=== PATIENT | female | born 1965 | race Two or more races ===

== ENCOUNTER 2021-11-12 15:50 | Outpatient (REF) | payer OTHER, SELFPAY ==
--- NOTE | ~2021-11-12 | MM_ITS ---
EXAMINATION: MM SCREENING DIGITAL BREAST TOMOSYNTHESIS, BILATERAL CLINICAL INFORMATION: Screening. Asymptomatic. The lifetime risk of breast cancer based on the Tyrer-Cuzick Model is 9%. COMPARISON: Mammography: 05/04/2017, 07/27/2015, 07/24/2013, 07/17/2013. TECHNIQUE: Digital breast tomosynthesis is performed in both the craniocaudal and mediolateral oblique views along with computer-aided detection (CAD). Synthesized 2D images are generated from the tomosynthesis. FINDINGS: The breasts are heterogeneously dense, which may obscure small masses (ACR BI-RADS breast composition Category c). Parenchymal pattern is similar to prior exams and there is no interval mass or architectural abnormality. The axilla and skin contours are unremarkable. Left breast has new regional heterogeneous calcifications upper outer quadrant. Patient will be recalled for additional magnification views. Right breast has new tightly grouped relatively coarse calcifications posterior 11:30 o'clock position. Additional magnification views will also be requested. MM/MM tomosynthesis screening BI IMPRESSION: Left: -New regional heterogenous calcifications upper outer quadrant. Right: -New tightly grouped relatively coarse calcifications posterior 11:30. ASSESSMENT: BI-RADS 0: Incomplete - Need Additional Imaging Evaluation RECOMMENDATION: 1. Additional views of the bilateral breasts (bilateral magnification CC and bilateral magnification ML). 2. Radiology department staff will contact the patient for additional imaging. This patient's information was entered into a reminder system with a target due date for their next mammogram.
== END 2021-11-12 15:51 | disposition home or self-care (01) ==
LOC: HO.MAMMO 15:50
PROVIDERS: PCP Nurse Practitioner; Visit Provider Nurse Practitioner
DX: Z12.31 Encounter for screening mammogram for malignant neoplasm of breast (principal)
CPT/HCPCS: 77063; 77067

== ENCOUNTER 2021-11-25 14:39 | Outpatient (REF) | payer OTHER, SELFPAY ==
--- NOTE | ~2021-11-25 | US_ITS ---
EXAMINATION: MM DIAGNOSTIC DIGITAL BREAST TOMOSYNTHESIS, BILATERAL US DIAGNOSTIC ULTRASOUND BREAST, LEFT CLINICAL INFORMATION: Recall from screening for new regional heterogeneous calcifications upper outer left breast and new tightly grouped relatively coarse calcifications posterior 11:30 right breast. COMPARISON: Mammography: 11/12/2021, 05/04/2017, 07/27/2015 TECHNIQUE: Digital breast tomosynthesis is performed. 2D images are generated from the tomosynthesis. The following views are obtained: Bilateral magnification CC, bilateral magnification ML. Images reviewed intra departmentally. Ultrasound left breast is targeted to the upper outer quadrant and left axilla. Grayscale imaging is performed without and with harmonics. FINDINGS: The breasts are heterogeneously dense, which may obscure small masses (ACR BI-RADS breast composition Category c). Additional magnification views left breast demonstrate regional pleomorphic abnormal calcifications with some branching charly types upper outer quadrant extending for approximately 5 cm in length posterior to anterior. This represents change from prior studies. Additional magnification views right breast demonstrate tightly grouped heterogeneous coarse calcifications posterior 11:30 o'clock position. This represents change from prior studies. Ultrasound left breast demonstrates irregular area of marked echogenicity with strong posterior shadowing corresponding to the area of calcification on mammography. There are scattered specular foci near side corresponding to the calcifications. Additional imaging of the left axilla demonstrates several benign lymph nodes with normal hany architecture. Results are discussed with the patient at time of visit. Ultrasound-guided core biopsy left breast is recommended. The right breast calcifications are low suspicion. Suggest stereotactic sampling on the right. US/US breast LT limited IMPRESSION: Left: -Regional abnormal pleomorphic calcifications upper outer left breast 5 cm length posterior to anterior with associated ultrasound correlate, high suspicion for malignancy. -No visible adenopathy left axilla. Right: -Tight heterogeneous coarse calcifications posterior 11:30, low suspicion for malignancy. ASSESSMENT: BI-RADS 4: Suspicious (subcategory 4C: High suspicion for malignancy) RECOMMENDATION: -Ultrasound-guided core biopsy left breast upper outer quadrant. -Stereotactic biopsy calcifications posterior 11:30 o'clock This patient's information was entered into a reminder system with a target due date for their next mammogram.
== END 2021-11-25 14:40 | disposition home or self-care (01) ==
LOC: HO.MAMMO 14:39
PROVIDERS: PCP Nurse Practitioner; Visit Provider Nurse Practitioner
DX: R92.1 Mammographic calcification found on diagnostic imaging of breast (principal)
CPT/HCPCS: 76642; 77066

== ENCOUNTER 2021-12-01 12:47 | Outpatient (REF) | payer MEDICAID, SELFPAY ==
--- NOTE | ~2021-12-01 | MM_ITS ---
PROCEDURE: US GUIDED BREAST BIOPSY, LEFT CLINICAL INFORMATION: Mass containing calcifications 1:00 position left breast COMPARISON: November 25, 2021 and studies dating back to June 01, 2012 PROCEDURAL DETAILS: The details of the procedure, as well as the risks, benefits, and alternatives to the procedure were explained to the patient in detail and all of her questions were answered, after which written informed consent was obtained. Site and side were confirmed. Prior to the procedure, sonography revealed the irregular shadowing mass containing calcifications. A time-out was performed, the lesion intended for biopsy was targeted, and the skin of the left breast was then prepped and draped in the usual sterile fashion. Using sonographic guidance, sterile technique, and 1% lidocaine without epinephrine for local anesthesia, multiple automated core biopsies were obtained through the targeted area with a 14G spring loaded Achieve core biopsy device. There was real-time confirmation of appropriate needle passage. Sampling was documented. At the completion of tissue sampling, a single coil metallic clip was deposited at the biopsy site. There was no evidence of immediate complication. SPECIMEN: An appropriate sample was obtained. DIGITAL POST-PROCEDURE MAMMOGRAPHY: Breast density: The tissue is heterogeneously dense which may obscure small masses. BI-RADS version 5, category C. There are no new mammographic findings demonstrated. The postprocedure 2-view direct digital mammogram reveals satisfactory positioning of the biopsy clip. The patient tolerated the procedure well and, after assuring adequate hemostasis, was discharged in good condition after reviewing postbiopsy breast care instructions. Final pathology results are pending. MM/MM diagnostic mammo unilat LT IMPRESSION: 1. No immediate complication from ultrasound-guided percutaneous biopsy left breast. 2. Ultrasound was used to localize and guide marker clip placement. 3. The 2-view direct digital postprocedure mammogram reveals satisfactory positioning of the biopsy clip. 4. Final pathology results are pending. A separate report with final recommendations will be issued once these results are made available.
--- NOTE | ~2021-12-01 | MM_ITS ---
EXAMINATION: STEREOTACTIC TOMOSYNTHESIS-GUIDED VACUUM-ASSISTED BREAST BIOPSY, RIGHT SPECIMEN RADIOGRAPH, RIGHT POST PROCEDURE DIGITAL MAMMOGRAM, RIGHT CLINICAL INFORMATION: Indeterminate grouping of calcifications superior right breast. COMPARISON: November 25, 2021 and studies dating back to June 01, 2012. TECHNIQUE/PROCEDURE: Informed consent was obtained from the patient after discussion of the benefits, risks, and alternatives to biopsy today. Patient appeared to understand. Gave opportunity for questions. Patient signed consent form. BIOPSY TABLE: [employer] Affirm Prone Biopsy System. LESION: Grouping of indeterminate calcifications. LOCAL ANESTHESIA: 8 mL 1% lidocaine; 18 mL 1% lidocaine with epinephrine. DERMATOTOMY: Single skin jazmyne dermatotomy performed. NEEDLE: Bubblesiva 9-gauge vacuum assisted core biopsy device. APPROACH: craniocaudal. TARGETING: Digital breast tomosynthesis used for targeting. CORES: 13. CLIP: Top hat. SPECIMEN RADIOGRAPH: Specimen radiograph is taken in separate room using digital mammography. The index calcifications are in the excised cores. Post biopsy image performed on the biopsy table demonstrates at the marking clip to lie within the biopsy cavity with no residual calcifications identified. The patient tolerated the procedure well. No immediate complications. Home instructions reviewed with the patient. Final pathology results are pending. MM/MM stereotactic biopsy RT IMPRESSION: 1. Digital tomosynthesis-guided core biopsy right breast with clip placement. 2. Specimen radiograph taken and post procedure image on biopsy table. There is satisfactory positioning of the biopsy clip. 3. Final pathology results pending. An addendum report will be issued.
[2021-12-01] MEDS: Lidocaine HCl 1 % 20 ML VIAL 7 ML SUBCUT (14:47)
[2021-12-01] MEDS: Sodium Bicarbonate 8.4% 50 MEQ/50 ML VIAL SUBCUT (14:49)
== END 2021-12-01 12:48 | disposition home or self-care (01) ==
LOC: HO.MAMMO 12:47
PROVIDERS: PCP Nurse Practitioner; Visit Provider Surgery
DX: C50.412 Malignant neoplasm of upper-outer quadrant of left female breast (principal); R92.1 Mammographic calcification found on diagnostic imaging of breast
CPT/HCPCS: 19081; 19083; 77062; 77065; 88305; 88360; 99202; A4648

== ENCOUNTER → 2021-12-08 15:03 | Outpatient (BNVA) | payer MEDICAID, SELFPAY | PROVIDERS: PCP Internal Medicine; Visit Provider Surgery | DX: C50.919 Malignant neoplasm of unspecified site of unspecified female breast (principal) | CPT/HCPCS: 99212 ==

== ENCOUNTER → 2021-12-15 14:37 | Outpatient (BNV) | payer MEDICAID, SELFPAY | PROVIDERS: PCP Internal Medicine; Referring Provider Surgery; Visit Provider Internal Medicine | DX: C50.412 Malignant neoplasm of upper-outer quadrant of left female breast (principal) | CPT/HCPCS: 99205; 99213; 99214 ==

== ENCOUNTER → 2021-12-20 10:15 | Outpatient (REF) | payer MEDICAID, SELFPAY ==
--- NOTE | 2021-12-20 10:17 | CA_ITS ---
Transthoracic Echocardiogram Patient (Last, First, Middle): Keesha Joaquin, Gender: Female Date of : 1965 Age: 56 Procedure Date: 12/20/2021 Procedure Type: Transthoracic Echocardiogram Location: OP Height: 160.02 cm Weight: 76.2 kg BSA: 1.80 m2 Heart Rate: bpm BP: 150 / 70 mmHg Audio Visual Project Manager: СЕРГЕЙ Araujo MD: Nova Olson MD Silk Spotter: Holden Bowden MD Symptoms: pre-chemo eval Study Quality: Fair ECG Rhythm: Sinus Conclusions: - Normal study Findings Left Ventricle Normal left ventricular size, thickness, and systolic function. The visually estimated ejection fraction is between 55-60%. Spectral Doppler is indicative of a normal filling pattern.Peak GLS is - 17.3%, within normal limits Right Ventricle Normal right ventricular cavity size and systolic function. Atria Both atria are normal in size. There is no evidence of interatrial shunt. Aortic Valve The aortic valve structure and function is likely normal. There is no aortic valve stenosis. There is no aortic valve regurgitation. Mitral Valve Normal mitral valve structure and function. There is trace mitral valve regurgitation. There is no mitral valve stenosis. Pulmonic Valve The pulmonic valve is likely normal. Tricuspid Valve Normal tricuspid valve structure. There is trace tricuspid valve regurgitation. The right ventricular systolic pressure is normal. The right ventricular systolic pressure is 24 mmHg. Normal right atrial pressure. There is no evidence of pulmonary hypertension. Great Vessels All visible segments of the aorta are normal in size. The pulmonary artery was not well visualized. Venous The inferior vena cava is normal in size and collapses greater than 50% with inspiration. Pericardium/Pleural There is no evidence of pericardial effusion. Prior Study Comparison No prior study available for comparison. Measurements 2D Linear Measurements IVSd: 0.91 0.6-0.9/0.6-1.0 cm LVIDd: 4.53 3.9-5.3/4.2-5.9 cm LVIDd Index: 2.52 2.4-3.2/2.2-3.1 cm/m2 LVIDs: 2.77 2.0-3.6 cm LVPWd: 0.87 0.7-1.1 cm LA Diam: 3.70 2.7-3.8/3.0-4.0 cm LAIDs Index: 2.06 1.5-2.3 cm/m2 LV Mass: 164.86 67-162/88-224 g LV Mass Index: 91.59 43-95/49-115 g/m2 LVOT Diam: 2.00 3.0+(-)1.3 cm 2D Systolic Function EF 4C: 57.00 >55% EF 2C: 58.50 >55% EF BiP: 59.20 >55% Mitral Valve MV Pk E: 0.97 MV PK A: 0.66 MV Decel Time: 224.00 E/A: 1.50 E'Lateral: 8.81 E'Medial: 9.46 E/E' Med: 10.30 E/E' Lat: 11.00 PHT: 66.00 MVA PHT: 3.33 Decel [place]: 4.35 Aortic Valve AoV Pk Cody: 1.66 AoV Mn Cody: 1.16 AoV VTI: 0.35 AoV Pk Grad: 11.00 Aov Mn Grad: 6.00 CHRISTOPHER Cont.VTI: 2.11 LVOT LVOT Pk Cody: 1.14 LVOT Mn Cody: 0.75 LVOT VTI: 0.24 LVOT Pk Grad: 5.00 LVOT Mn Grad: 3.00 LVOT Diam: 2.00 LVOT Area: 3.14 Diastolic Function MV Pk E: 0.97 MV Pk A: 0.66 E/A: 1.50 E'Medial: 9.46 E/E' Med: 10.30 E' Laterial: 8.81 E/E' Lat: 11.00 Right Ventricle TAPSE (mm): 23.20 TVS' Cody: 12.20 Tricuspid Valve TR Pk Cody: 2.29 TR Pk Grad: 21.00 RA Press: 3.00 RVSP: 24.00 Great Vessels Aorta Sinus of Valsalva: 3.05 2.0-3.5 cm Ao Asc: 3.20 2.1-3.4 cm Ao Arch: 3.10 Updated in Other Vendor System with Status of Final Holden Bowden MD electronically signed on 12/20/2021 5:44:11 PM with status of Final
== END ==
LOC: HO.CARD 10:15
PROVIDERS: Visit Provider Internal Medicine
DX: C50.919 Malignant neoplasm of unspecified site of unspecified female breast (principal)
CPT/HCPCS: 93306; 93356

== ENCOUNTER 2021-12-23 17:46 | Outpatient (REF) | payer MEDICAID, SELFPAY ==
--- NOTE | ~2021-12-23 | MR_ITS ---
EXAMINATION: MR BREAST WITHOUT AND WITH CONTRAST, BILATERAL CLINICAL INFORMATION: Newly diagnosed left breast invasive ductal carcinoma with DCIS at 1:00. Recent benign right breast biopsy at 11:30. COMPARISON: Mammogram 11/25/2021. No previous breast MRI. TECHNIQUE: Imaging was performed with a dedicated breast coil. Prior to the administration of contrast, bilateral axial T1 and bilateral axial T2 weighted sequences were obtained. After the uneventful administration of?7.5 mL of Gadavist, dynamic contrast-enhanced VIBRANT series through the breasts in the axial plane were performed. Subtracted images were performed and reviewed. A delayed sagittal sequence through both breasts was acquired. Additionally, CAD post-processing, including maximum intensity projections, 3-D reconstructions and kinetic analysis, were performed an independent workstation and reviewed by the interpreting radiologist is a portion of this exam. FINDINGS: The patient's fibroglandular tissue demonstrates moderate background enhancement. LEFT BREAST: There is large area of irregular masslike enhancement in the left breast located between the 2:00 and 4:00 axes measuring 5.2 x 2.8 x 2.5 cm, 6 cm from the nipple. The closest skin margin is lateral at a distance of 1.3 cm. The distance to the pectoral fascia is 1.5 cm. The kinetics are heterogeneous including type I and type II enhancement. This area represents the site of the recently diagnosed malignancy. The area of enhancement correlates well to the coarse heterogeneous calcifications in increased density evident mammographically. There is no other suspicious nonmass or mass enhancement within the left breast. Review of the kinetic images demonstrates no additional suspicious findings. RIGHT BREAST: In the right breast, at approximately the 11:30 position, 7 cm from the nipple, there is a T2 hyperintense collection with associated enhancement measuring 1.1 cm size which correlates to the recent biopsy site. The enhancement is consistent with post procedure change. No suspicious nonmass or mass enhancement within the right breast. Review of the kinetic images demonstrates no additional suspicious findings. Within the right axilla there is a T1 hypointense T2 hyperintense mass measuring 1.6 x 1.5 cm (image 9, series 4). This may represent an abnormal axillary lymph node. Recommend ultrasound evaluation. No abnormal left axillary lymph nodes. Limited views of the chest and abdomen are unremarkable. MR/MR breast BI wo/w con IMPRESSION: 1. Large area of mass enhancement in the upper outer quadrant of the left breast with extension inferiorly to the 4:00 axis correlating to the site of recent the diagnosed malignancy. 2. No MRI specific evidence for abnormal left axillary adenopathy. 3. Abnormal right axillary mass. Recommend MR directed second look ultrasound. 4. Unremarkable post biopsy changes, upper outer quadrant, right breast. No MRI evidence of right breast malignancy. ASSESSMENT: LEFT BREAST: B-RADS 6 - Known Malignancy - Appropriate action should be taken. RIGHT BREAST: BI-RADS 4 - Suspicious abnormality - Biopsy should be considered. RECOMMENDATIONS: Recommend MR directed second look ultrasound. Recommendation will be called to the referring office.
== END 2021-12-23 17:47 | disposition home or self-care (01) ==
LOC: HO.MRI 17:46
PROVIDERS: Visit Provider Internal Medicine Medical Oncology
DX: C50.919 Malignant neoplasm of unspecified site of unspecified female breast (principal)
CPT/HCPCS: 77049; A9585

== ENCOUNTER 2021-12-28 06:38 | Day surgery (SDC) | payer MEDICAID, SELFPAY ==
--- NOTE | ~2021-12-28 | IR_ITS ---
PROCEDURE: IR INSERTION OF TUNNEL CATHETER CLINICAL INFORMATION: Breast cancer. COMPARISON: None. TECHNIQUE: Procedure and risks and benefits including bleeding, infection and pneumothorax were discussed with the patient and informed consent was obtained. All elements of maximal sterile barrier technique followed including use of cap, mask, sterile gown, sterile gloves, a sterile full body drape and hand hygiene. Also followed skin preparation with 2% chlorhexidine for cutaneous antisepsis, and sterile ultrasound preparation with sterile gel and probe cover when applicable. The right neck and upper chest were prepped and draped in usual sterile fashion. The skin and soft tissues of the right lower neck were anesthetized with 1% lidocaine plain. Using ultrasound guidance and a 5 [place] micropuncture system, right internal jugular vein access was obtained. Over a 0.018 wire, a 5 [place] dilator was positioned in the SVC. The skin and soft tissues of the right upper anterior chest were anesthetized with 1% lidocaine with epinephrine. A small incision was made. Using blunt dissection, a subcutaneous pocket was created. A subcutaneous tunnel from the chest to the neck incision was anesthetized with 1% lidocaine with epinephrine. Using a tunneler, a 6.6 [place] single-lumen catheter was tunneled from the chest to the neck incision. Catheter was attached to the port. The port was positioned in the subcutaneous pocket using two 2-0 nonabsorbable sutures. A 0.025 guidewire was advanced through the 5 [place] dilator into the right atrium. Following serial dilatation, the 5 [place] dilator was exchanged for a peel-away sheath. Using bent wire technique, catheter length was estimated and the catheter was cut. Catheter length is 20.5 cm. Catheter was fed through the peel-away sheath. The neck incision was closed using a 4-0 absorbable subcuticular suture. Chest incision was closed using three 3-0 absorbable subcuticular sutures followed by a running 4-0 absorbable subcuticular suture. The port was accessed. The port had good blood return, flushed easily and was instilled with 5 mL heparin 100 unit per mL solution. Real-time ultrasound guidance was used to document vein patency and for needle entry. A formal ultrasound picture was recorded. The patient received Versed 1.5 mg and fentanyl 75 mcg intravenously during the procedure. Total sedation time was 115 minutes. Fluoroscopy time was 0.7 minutes. DAP 83 cGy-cm2. Conscious sedation was provided by a registered nurse under my direct supervision. One saved fluoroscopic image and one saved ultrasound image. FINDINGS: There is a right internal jugular port with tip projecting over the cavoatrial junction. IR/IR cvc insert tunnel w prt/field ring assembler IMPRESSION: Right internal jugular 6.6 [place] single-lumen Dignity Port-A-Cath placement.
[2021-12-28 07:14] VITALS: BMI 29.7
[2021-12-28 07:26] LABS: MANUAL DIFF FLAG NO
[2021-12-28 07:28] LABS: Basophils Absolute Auto 0.1 X10*3/uL (0.0-0.2); Basophils Percent Auto 0.5 % (0-2); Eosinophils Absolute Auto 0.2 X10*3/uL (0.0-0.4); Eosinophils Percent Auto 2.2 % (0-4); Hematocrit 33.8 % (37.0-47.0); Hemoglobin 11.3 g/dl (12.0-16.0); Imm Gran Abs Auto 0.02 X10*3/uL (0.00-0.03); Imm Gran Pct Auto 0.2 % (0.0-0.4); Lymphocytes Absolute Auto 3.4 X10*3/uL (1.2-4.9); Lymphocytes Percent Auto 34.6 % (20-40); Mean Corpuscular HGB Conc 33.4 g/dl (31.0-35.0); Mean Corpuscular Volume 89.7 fL (80.0-98.0); Mean Platelet Volume 9.8 fL (9.4-12.3); Monocytes Absolute Auto 0.7 X10*3/uL (0.1-1.2); Monocytes Percent Auto 7.3 % (2-11); Neutrophils Absolute Auto 5.4 x10*3/uL (2.0-8.3); Neutrophils Percent Auto 55.2 % (45-73); Platelet Count 242 X10*3/uL (160-400); Red Blood Count 3.77 X10*6/uL (4.20-5.50); Red Cell Distribution Width 13.2 % (11.0-16.0); White Blood Count 9.8 X10*3/uL (4.8-10.8)
[2021-12-28 07:30] LABS: Glucose, Whole Blood 137 mg/dL (60-115)
[2021-12-28 07:33] LABS: Prothrombin Time 11.2 SEC (9.9-13.0)
[2021-12-28 07:36] LABS: Partial Thromboplastin Time 32.9 SEC (24.1-38.0)
[2021-12-28] MEDS: Lidocaine HCl 1 % 20 ML VIAL 5 ML INFILTRATI (10:06)
[2021-12-28] MEDS: Lidocaine HCl 2% PF/Epi 1:200 20 ML VIAL INFILTRATI (10:08)
[2021-12-28 10:36] VITALS: BP 153/83; PULSE 72; RESP 18; TEMP 36.1; O2SAT 97
--- NOTE | 2021-12-28 10:47 | HO.RADPN ---
RADIOLOGY Narrative Narrative: RIJ 6.6 fr Dignity singlelumen port placed. Tip at cavoatrial junction.
[2021-12-28] MEDS: Acetaminophen 325 MG TABLET 650 MG PO (10:48)
[2021-12-28 10:51] VITALS: BP 141/75; PULSE 72; RESP 18; O2SAT 98
[2021-12-28 11:06] VITALS: BP 158/85; PULSE 75; RESP 18; O2SAT 97
[2021-12-28 11:21] VITALS: BP 133/75; PULSE 77; RESP 18; O2SAT 98
[2021-12-28 11:36] VITALS: BP 145/80; PULSE 74; RESP 18; TEMP 36.1; O2SAT 99
== END 2021-12-28 11:40 | disposition home or self-care (01) ==
PROVIDERS: Radiology Diagnostic Radiology; PCP Nurse Practitioner; Visit Provider Radiology Diagnostic Radiology
DX: C50.912 Malignant neoplasm of unspecified site of left female breast (principal); Z17.1 Estrogen receptor negative status [ER-]
CPT/HCPCS: 36415; 36561; 82947; 85025; 85610; 85730; 99152; 99153; C1769; C1788; J0690; J1642; J2250; J3010

== ENCOUNTER 2021-12-30 08:35 | Outpatient (REF) | payer MEDICAID, SELFPAY ==
--- NOTE | ~2021-12-30 | MM_ITS ---
EXAMINATION: US DIAGNOSTIC ULTRASOUND BREAST, RIGHT US ULTRASOUND-GUIDED BIOPSY BREAST/AXILLA, RIGHT MM POST PROCEDURE DIGITAL MAMMOGRAPHY, RIGHT CLINICAL INFORMATION: Newly diagnosed left breast invasive ductal cancer with DCIS 12/01/2021. Benign right stereotactic biopsy 12/01/2021 (stromal fibrosis and coarse calcifications). Postbiopsy breast MRI 12/23/2021 demonstrates prominent right axillary node for diagnostic ultrasound and tissue sampling. COMPARISON: Mammography 11/12/2021, 11/25/2021, left ultrasound-guided biopsy and right stereotactic biopsy 12/01/2021, MR bilateral breasts 12/23/2021. US BREAST, RIGHT TECHNIQUE: Ultrasound of the right axilla is performed with real-time garcia scale imaging and color Doppler. The recent MRI examination to guide targeted ultrasound. FINDINGS: There is a axillary node in expected location based on the MR right axilla measuring just under 2 cm in diameter with thickened cortex up to 5 mm. Mild lobular contours are present. There is central fatty hilus and normal color flow pattern. This corresponds to the finding on recent MRI. US BIOPSY BREAST/AXILLA, RIGHT FINDINGS: Proper informed consent is obtained from the patient after discussion of the procedure, potential risks and complications, and alternatives. Patient was given an opportunity for questions. The patient appeared to understand. The patient consented to the procedure and signed the consent form. Hospital provided staff interpreter assisted for the consent and throughout the procedure. LOCATION: Right axilla GUIDANCE: Ultrasound-guided; aseptic technique. LESION: Axillary nodes with thickened cortex and mild lobular surface contour. APPROACH: Lateral medial ANESTHESIA: 10 mL carbonated 1% lidocaine. DERMATOTOMY: Single skin jazmyne dermatotomy performed. NEEDLE: 16-gauge Bard Marquee biopsy device with co-axial introducer. CORES: 5 core (3 cores placed in formalin and 2 cores and flow cytometry). CLIP: HydroMARK; shape: butterfly. POST PROCEDURE DIGITAL BREAST TOMOSYNTHESIS, RIGHT: The post biopsy mammogram is performed in separate room using separate digital breast equipment from the biopsy procedure. MLO x3 views are obtained. The breasts are heterogeneously dense, which may obscure small masses (breast composition category: c). The biopsy clip marker is confirmed right axilla. There is a port in the [id number]. A biopsy clip marker is also present in the upper right breast from recent benign stereotactic biopsy. No gross hematoma. The patient tolerated the procedure well. No immediate complications. Home instructions reviewed with the patient. Final pathology results are pending. MM/MM diagnostic mammo unilat RT IMPRESSION: 1. Status post ultrasound-guided core biopsy node right axilla. 2. Clips place: HydroMARK; shape: butterfly. 3. Pathology pending. An addendum report will be issued.
== END 2021-12-30 08:36 | disposition home or self-care (01) ==
LOC: HO.MAMMO 08:35
PROVIDERS: Radiology Diagnostic Radiology; Visit Provider Internal Medicine
DX: C50.911 Malignant neoplasm of unspecified site of right female breast (principal)
CPT/HCPCS: 36415; 38505; 76642; 76942; 77062; 77065; 88184; 88185; 88305; 88341; 88342

== ENCOUNTER 2022-02-14 14:25 | Emergency (ER) | payer MEDICAID, SELFPAY ==
[2022-02-14 15:40] VITALS: BP 113/65; PULSE 74; RESP 18; TEMP 36.8; O2SAT 98; BMI 26.0
--- NOTE | 2022-02-14 18:12 | ED.GENADULT ---
HPI - General Adult General Chief complaint: Skin/Abscess/Foreign Body Stated complaint: abases on vagina Time Seen by Provider: 02/14/22 18:12 Source: patient Mode of arrival: ambulatory History of Present Illness HPI narrative: 56-year-old female with past medical history of diabetes, HLD, HTN, breast CA on chemotherapy, presenting to the ED complaining of painful lump to right labia since Monday. Reports area has been growing, believed opened/popped today as noted leaking. Denies abdominal pain, dysuria, hematuria, rectal pain, bleeding, fever Onset (ago): day(s) Related Data Home Medications Medication Instructions Recorded Confirmed atorvastatin 80 mg tablet 80 mg PO QPM 12/01/21 02/07/22 cholecalciferol (vitamin D3) 50 50 mcg PO DAILY 12/01/21 02/07/22 mcg (2,000 unit) tablet losartan 50 mg-hydrochlorothiazide 1 tab PO DAILY 12/01/21 02/07/22 12.5 mg tablet multivitamin-ferrous 1 tab PO DAILY 12/01/21 02/07/22 fumarate-folic acid 18 mg-400 mcg tablet (Certavite-Antioxidant) metformin 500 mg tablet 1,000 mg PO BID 12/08/21 02/07/22 Previous Rx's Medication Instructions Recorded dexamethasone 4 mg tablet 4 mg PO BID #30 tabs 01/04/22 ondansetron 8 mg disintegrating 8 mg PO Q8H PRN Nausea #30 tabs 01/04/22 tablet potassium chloride 10 mEq 10 meq PO DAILY #30 tabs 02/07/22 tablet,extended release (K-Tab) cephalexin 500 mg capsule 500 mg PO QID 7 days #28 caps 02/14/22 doxycycline hyclate 100 mg tablet 100 mg PO BID 7 days #14 tabs 02/14/22 Allergies Allergy/AdvReac Type Severity Reaction Status Date / Time No Known Allergies Allergy Verified 12/28/21 07:14 Review of Systems Review of Systems: Constitutional: No Weight loss, No Fever, No Chills ENT/Mouth: No Ear Pain, No Nasal Congestion, No sore throat, No Rhinorrhea, No Swallowing Difficulty Cardiovascular: No Chest Pain, No SOB Respiratory: No Cough, No Sputum, No Wheezing Gastrointestinal: No Nausea, No Vomiting, No Diarrhea, No Constipation, No Abdominal pain Genitourinary: No Dysuria, No Urinary Frequency, No Hematuria, No Urinary Incontinence/retention, No Urgency, No Flank Pain Musculoskeletal: No joint pain, No Myalgias, No Joint Swelling Skin: + Skin Lesions, No rash Neuro: No Weakness, No Numbness, No Paresthesias Yes all other systems are reviewed and are negative Constitutional: Constitutional: Reports as per [facility] Past Medical History Attestation statement: The following information was validated with the patient. Medical History (Updated 02/14/22 @ 18:19 by BONIFACIO Mina) Breast calcification, left Breast calcification, right COVID-19 vaccine series completed Diabetes Elevated cholesterol HTN (hypertension) Invasive ductal carcinoma of breast Surgical History H/O colonoscopy Family History Family History Father CVD (cardiovascular disease) Social History Social History (Updated 02/07/22 @ 10:50 by RAFIQ No) Household Members: None Housing: Apartment Are you a primary patient care assistant to a significant other at home: No Do you presently have visiting nurse or other home services: No Patient Tobacco Use Status: Never used Tobacco Substance Use Type: Marijuana Advance Directives: No Advance Directives Information Provided: No service: No Current occupational status: unemployed Physical Exam ED Vital Signs: Vital Signs - 24 hr 02/14/22 15:40 Temperature 98.2 F Pulse Rate 74 Respiratory Rate 18 Blood Pressure 113/65 Pulse Oximetry 98 Oxygen Delivery Method Room Air BMI result Body Mass Index 26.0 Const General: cooperative, healthy appearing and no acute distress Orientation/consciousness: patient oriented x3 Limitations: no limitations HENMT Head: Yes normal to inspection and Yes atraumatic Ears: hearing grossly normal bilaterally General nose exam: Normal external nose present Face and sinus: Yes normal facial exam Eyes General: appearance normal, both eyes and all related structures EOM: EOMs intact bilaterally Neck Neck: Yes normal visual inspection and Yes no meningeal signs Resp Effort & Inspection: normal respiratory effort and no respiratory distress Auscultation: clear to auscultation bilaterally Cardio Rate: regular rate Heart sounds: S1 normal heart sound present and S2 normal heart sound present GI Inspection: Yes normal to inspection Palpation (GI): Soft to palpation, nontender, no guarding and not rigid Other: + indurated abscess to right labia majora. No fluctuance. Scant serosanguineous leakage expressed. No surrounding/overlying erythema/streaking. No evidence of Roseanna gangrene Skin Rashes: no rashes Wounds: no wounds Neuro General: patient oriented x3, tone normal and no meningeal signs Gait exam (Neuro): Normal gait present Extrem General: Yes normal to inspection Medical Decision Making MDM Narrative Medical decision making narrative: 56-year-old female with past medical history of diabetes, HLD, HTN, breast CA on chemotherapy, presenting to the ED complaining of painful lump to right labia since Monday. On exam vital signs stable, NAD, nontoxic appearing, physical exam as above. No overlying cellulitis. Area indurated will not perform I&D at this time. Discussed worrisome signs and symptoms and strict return precautions with patient, will DC with antibiotics and close follow-up Medical Records Medical records reviewed: Yes I reviewed the patient's medical records. Lab Data Lab results reviewed: Yes I reviewed the patient's lab results. Discharge Plan Discharge Clinical Impression: Abscess of right genital labia Patient Disposition: Home, Self-Care Instructions: Abscess (ED), Abscess Follow-up (ED) Additional Instructions: you have an abscess of your labia take keflex and doxycycline as prescribed apply warm compresses avoid the sun while on Doxycycline as makes you prone to sunburn if area grows, becomes, red, has put drainage or you have fever return to the ED usted tiene un absceso de susan labios tome keflex y doxiciclina seg?n lo prescrito aplicar compresas calientes evite el marylou mientras yeni doxiciclina, ya que lo hace propenso a las quemaduras damian si el ?madhu crece, se pone mireya, mahoney puesto drenaje o tiene fiebre, regrese al servicio de urgencias Prescriptions: New cephalexin 500 mg capsule 500 mg PO QID 7 Days Qty: 28 0RF doxycycline hyclate 100 mg tablet 100 mg PO BID 7 Days Qty: 14 0RF No Action ondansetron 8 mg Tablet,Disintegrating 8 mg PO Q8H PRN (Reason: Nausea) Qty: 30 3RF dexamethasone 4 mg Tablet 4 mg PO BID Qty: 30 2RF Rx Instructions: start the night before chemotherapy and take twice a day for 2 days after chemotherapy potassium chloride [K-Tab] 10 mEq Tablet Extended Release 10 meq PO DAILY Qty: 30 0RF losartan-hydrochlorothiazide 50-12.5 mg tablet 1 tab PO DAILY atorvastatin 80 mg tablet 80 mg PO QPM cholecalciferol (vitamin D3) 50 mcg (2,000 unit) tablet 50 mcg PO DAILY Certavite-Antioxidant 18-400 mg-mcg tablet 1 tab PO DAILY metformin 500 mg tablet 1,000 mg PO BID Referrals: Deepika Moirn [Primary Care Provider] - 3 days (re-evaluation) Interventions: ED Discharge Assessment Last Done: 02/14/22 18:33 Discharge Date/Time: 02/14/22 18:33 Print Language: Vietnamese
== END 2022-02-14 18:33 | disposition home or self-care (01) ==
PROVIDERS: Emergency Provider Internal Medicine; PCP Nurse Practitioner
DX: N76.4 Abscess of vulva (principal); I10 Essential (primary) hypertension; E78.5 Hyperlipidemia, unspecified; E11.9 Type 2 diabetes mellitus without complications; C50.919 Malignant neoplasm of unspecified site of unspecified female breast; Z92.21 Personal history of antineoplastic chemotherapy; Z79.02 Long term (current) use of antithrombotics/antiplatelets; Z79.84 Long term (current) use of oral hypoglycemic drugs; Z79.899 Other long term (current) drug therapy
CPT/HCPCS: 99282; 99283

== ENCOUNTER → 2022-03-04 15:51 | Outpatient (REF) | payer MEDICAID, SELFPAY ==
--- NOTE | 2022-03-04 15:54 | CA_ITS ---
Transthoracic Echocardiogram Patient (Last, First, Middle): Keesha Joaquin, Gender: Female Date of : 1965 Age: 56 Procedure Date: 03/04/2022 Procedure Type: Transthoracic Echocardiogram Location: OP Height: 160.02 cm Weight: 66.68 kg BSA: 1.70 m2 Heart Rate: bpm BP: 118 / 60 mmHg Quad Stayer: Referring MD: Nova Olson MD Design Cell Engineer: Holden Bowden MD Symptoms: on HER 2 therapy Study Quality: Fair ECG Rhythm: Sinus Conclusions: - Normal LV systolic function with LVEF of 60-65% Findings Left Ventricle Normal left ventricular size, thickness, and systolic function. The visually estimated ejection fraction is between 60-65%. Spectral Doppler is indicative of a normal filling pattern. Pericardium/Pleural There is no evidence of pericardial effusion. Prior Study Comparison No significant change compared to prior study dated: 12/20/2021. Measurements 2D Linear Measurements IVSd: 0.86 0.6-0.9/0.6-1.0 cm LVIDd: 4.11 3.9-5.3/4.2-5.9 cm LVIDd Index: 2.42 2.4-3.2/2.2-3.1 cm/m2 LVIDs: 2.64 2.0-3.6 cm LVPWd: 0.91 0.7-1.1 cm LV Mass: 139.01 67-162/88-224 g LV Mass Index: 81.77 43-95/49-115 g/m2 2D Systolic Function EF 4C: 65.30 >55% EF 2C: 58.50 >55% EF BiP: 60.50 >55% Mitral Valve E'Medial: 11.20 Diastolic Function E'Medial: 11.20 Tricuspid Valve TR Pk Cody: 1.66 TR Pk Grad: 11.00 Updated in Other Vendor System with Status of Final Holden Bowden MD electronically signed on 03/05/2022 10:55:23 AM with status of Final
== END ==
LOC: HO.CARD 15:51
PROVIDERS: PCP Nurse Practitioner; Visit Provider Internal Medicine
DX: C50.919 Malignant neoplasm of unspecified site of unspecified female breast (principal)
CPT/HCPCS: 93308

== ENCOUNTER → 2022-05-16 14:33 | Outpatient (BNVA) | payer MEDICAID, SELFPAY | PROVIDERS: PCP Nurse Practitioner; Visit Provider Surgery | DX: C50.412 Malignant neoplasm of upper-outer quadrant of left female breast (principal) | CPT/HCPCS: 99212 ==

== ENCOUNTER 2022-05-24 13:15 | Outpatient (REF) | payer MEDICAID, SELFPAY ==
--- NOTE | ~2022-05-24 | MR_ITS ---
EXAMINATION: MR BREAST WITHOUT AND WITH CONTRAST, BILATERAL CLINICAL INFORMATION: Left breast invasive duct carcinoma with DCIS. Status post neoadjuvant chemotherapy treatment. COMPARISON: Bilateral breast MRI 12/23/2021, bilateral mammogram 11/12/2021 and images from bilateral breast biopsies 12/01/2021 TECHNIQUE: Imaging was performed with a dedicated breast coil. Prior to the administration of contrast, bilateral axial T1 and bilateral axial T2 weighted sequences were obtained. After the uneventful administration of?7 mL of Gadavist, dynamic contrast-enhanced VIBRANT series through the breasts in the axial plane were performed. Subtracted images were performed and reviewed. A delayed sagittal sequence through both breasts was acquired. Additionally, CAD post-processing, including maximum intensity projections, 3-D reconstructions and kinetic analysis, were performed an independent workstation and reviewed by the interpreting radiologist is a portion of this exam. FINDINGS: The patient's breast parenchyma is composed of heterogeneously dense fibroglandular elements bilaterally. There is no significant background parenchymal enhancement noted. LEFT BREAST: Previously seen 5.2 cm area of irregular masslike enhancement in the 2-4 o'clock segment of the left breast, consistent with the patient's biopsy-proven malignancy demonstrates no significant residual enhancement following neoadjuvant chemotherapy. There is no suspicious enhancing mass, duct dilatation or ductal type enhancement present. No skin thickening or nipple retraction is seen. RIGHT BREAST: No suspicious masslike or non-masslike enhancement. No abnormal skin thickening or nipple retraction. No abnormal architectural distortion. Review of the T2 weighted images demonstrates no fibrocystic changes or dilated ducts. Review of kinetic images reveals no additional findings. There is no suspicious internal mammary chain or axillary adenopathy. Limited views of the chest and abdomen are unremarkable. MR/MR breast BI wo/w con IMPRESSION: Area of known malignancy in the upper outer quadrant does not demonstrate any residual enhancement following neoadjuvant chemotherapy. ASSESSMENT: LEFT BREAST: BI-RADS 6, known malignancy is present. RIGHT BREAST: BI-RADS 1-Negative RECOMMENDATIONS: Surgical management of known left breast carcinoma treated with neoadjuvant chemotherapy. No residual enhancement is noted.
== END 2022-05-24 13:16 | disposition home or self-care (01) ==
LOC: HO.MRI 13:15
PROVIDERS: Visit Provider Internal Medicine
DX: Z01.818 Encounter for other preprocedural examination (principal); C50.919 Malignant neoplasm of unspecified site of unspecified female breast
CPT/HCPCS: 77049; A9585

== ENCOUNTER 2022-07-08 07:36 | Day surgery (SDC) | payer MEDICAID, SELFPAY ==
[2022-07-05 11:46] VITALS: BMI 26.2
--- NOTE | 2022-07-07 09:13 | HO.ANESPROP2 ---
Documented by User: Rin Robles NP 07/07/22 09:22 HPI - Anesthesia Eval Consult details Narrative: 56yo F for Left [place] Node Biopsy, Left Mastectomy Simple Right chest port-a-cath PMFSH Active Problems Active Problems: All Active Problems (Updated 07/05/22 @ 16:03 by Nova Olson MD) Breast calcification, left (Acute) Breast calcification, right (Acute) Invasive ductal carcinoma of breast (Chronic) Past Medical History Medical History (Updated 07/05/22 @ 16:03 by Nova Olson MD) Breast calcification, left Breast calcification, right COVID-19 vaccine series completed Diabetes Elevated cholesterol HTN (hypertension) Invasive ductal carcinoma of breast Port-A-Cath in place Family History Family History Father CVD (cardiovascular disease) Surgical History Surgical History H/O colonoscopy Social History Social History Household Members: None Housing: Apartment Are you a primary skin care technician to a significant other at home: No Do you presently have visiting nurse or other home services: No Patient Tobacco Use Status: Never used Tobacco Use of substances other than those prescribed or required for medical reasons: Yes Substance Use Type: Marijuana Substance Use Frequency: Daily Have you been hit, kicked, punched, or otherwise hurt by someone within the past year? If so, by whom?: No Are you DNR?: No Advance Directives: No Advance Directives Information Provided: Yes (brochure mailed) Advance Directives on File: No Recently lost weight without trying: Yes How much weight loss: 14-23 pounds Eating poorly because of decreased appetite: Yes Nutrition screen score: 5 Nutrition Risks: No Nutritional Risk Patient : No Poor oral hygiene: No service: No Current occupational status: unemployed Meds Allergies Allergy/AdvReac Type Severity Reaction Status Date / Time No Known Allergies Allergy Verified 05/16/22 14:44 Active Medications: Current Medications Lidocaine HCl (Lidocaine 4 % Cream Kit) 1 appl TOPICAL ONCE ONE; Protocol Stop: 07/08/22 07:59 Home Medications Medication Instructions Recorded Confirmed Last Taken Type atorvastatin 80 mg tablet 80 mg PO QPM 12/01/21 07/05/22 Unknown History cholecalciferol (vitamin D3) 50 50 mcg PO DAILY 12/01/21 07/05/22 Unknown History mcg (2,000 unit) tablet losartan 50 mg-hydrochlorothiazide 1 tab PO DAILY 12/01/21 07/05/22 Unknown History 12.5 mg tablet multivitamin-ferrous 1 tab PO DAILY 12/01/21 07/05/22 Unknown History fumarate-folic acid 18 mg-400 mcg tablet (Certavite-Antioxidant) metformin 500 mg tablet 1,000 mg PO BID 12/08/21 07/05/22 Unknown History loperamide 2 mg capsule 2 mg PO Q4H PRN Diarrhea 02/16/22 07/05/22 Unknown History Exam Exam Date and Time: July 07, 2022 0913 Height,Weight and Vital Signs: Height 5 ft 3 in Weight 67.132 kg Pertinent Lab Results Pertinent Lab Results: Laboratory Tests 07/01/22 07/01/22 10:20 10:20 WBC 7.5 Hgb 10.6 L Hct 31.9 L Plt Count 248 Sodium 140 Potassium 4.1 Chloride 106 Carbon Dioxide 27 BUN 18 H Creatinine 0.92 Narrative Narrative: Echo 03/2022 Conclusions: - Normal LV systolic function with LVEF of 60-65%? Findings Left Ventricle Normal left ventricular size, thickness, and systolic function. The visually estimated ejection fraction is between 60-65%.? Spectral Doppler is indicative of a normal filling pattern. Assessment and Plan Assessment Anesthesia Assessment: Chart Reviewed Documented by User: Brooklyn Stinson MD 07/08/22 11:30 [facility] Past Medical History Medical History (Updated 07/05/22 @ 16:03 by Nova Olson MD) Breast calcification, left Breast calcification, right COVID-19 vaccine series completed Diabetes Elevated cholesterol HTN (hypertension) Invasive ductal carcinoma of breast Port-A-Cath in place Family History Family History Father CVD (cardiovascular disease) Family history of problems with anesthesia: No Surgical History Surgical History H/O colonoscopy History of Problems with Anesthesia: No Social History Social History Household Members: None Housing: Apartment Are you a primary skin care technician to a significant other at home: No Do you presently have visiting nurse or other home services: No Patient Tobacco Use Status: Never used Tobacco Use of substances other than those prescribed or required for medical reasons: Yes Substance Use Type: Marijuana Substance Use Frequency: Daily Have you been hit, kicked, punched, or otherwise hurt by someone within the past year? If so, by whom?: No Are you DNR?: No Advance Directives: No Advance Directives Information Provided: Yes (brochure mailed) Advance Directives on File: No Recently lost weight without trying: Yes How much weight loss: 14-23 pounds Eating poorly because of decreased appetite: Yes Nutrition screen score: 5 Nutrition Risks: No Nutritional Risk Patient : No Poor oral hygiene: No service: No Current occupational status: unemployed Meds Allergies Allergy/AdvReac Type Severity Reaction Status Date / Time No Known Allergies Allergy Verified 05/16/22 14:44 Home Medications Medication Instructions Recorded Confirmed Last Taken Type atorvastatin 80 mg tablet 80 mg PO QPM 12/01/21 07/05/22 Unknown History cholecalciferol (vitamin D3) 50 50 mcg PO DAILY 12/01/21 07/05/22 Unknown History mcg (2,000 unit) tablet losartan 50 mg-hydrochlorothiazide 1 tab PO DAILY 12/01/21 07/05/22 Unknown History 12.5 mg tablet multivitamin-ferrous 1 tab PO DAILY 12/01/21 07/05/22 Unknown History fumarate-folic acid 18 mg-400 mcg tablet (Certavite-Antioxidant) metformin 500 mg tablet 1,000 mg PO BID 12/08/21 07/05/22 Unknown History loperamide 2 mg capsule 2 mg PO Q4H PRN Diarrhea 02/16/22 07/05/22 Unknown History Exam Airway Mallampati Class: II TM Dist: >3cm Neck ROM: Full Partial: Lower (Left molar removed) Heart: rr Lungs: cta Assessment and Plan Assessment Anesthesia Assessment: Anesthesia Plan Discussed Final Anesthetic Review Family History of Problems with Anesthesia: No History of Problems with Anesthesia: No NPO: Yes ASA Class: II Final Preanesthetic Review: No Changes in Pt Med Stat, Meds/Allgs Chart Reviewed, Consent Obtained/Reviewed and Anes Risks/Benef Reviewed Patient Risk: Low Anesthetic Plan Anesthetic Plan: GA Disposition: Standard PACU
[2022-07-08] VITALS (17 sets, daily range): BP systolic 137–171; BP diastolic 63–89; PULSE 71–85; RESP 16–18; TEMP 36.6–37.1; O2SAT 94–99; BMI 26.5
--- NOTE | ~2022-07-08 | NM_ITS ---
PROCEDURE: NM LYMPH SCINTIGRAPHY CLINICAL INFORMATION: Left breast cancer. COMPARISON: None TECHNIQUE: Following explaining left breast sentinel node imaging, a written consent was obtained. The area around the left breast was medicated with 4% lidocaine. The area was then cleaned and draped in the usual sterile manner. 0.5 mCi of 99M technetium lymphocytic divided in 4 equal doses was injected in four quadrants around the left breast areola and imaging obtained 30 minutes later. Patient tolerated procedure extremely well. FINDINGS: There is normal isotope activity seen in the four quadrants around the left breast areola. There are two areas of activity corresponding to sentinel nodes seen in the left anterior axilla. NM/NM sentinel node w imaging IMPRESSION: Two sentinel nodes seen in the left anterior axilla on left breast lymphoscintigraphy.
[2022-07-08 09:29] LABS: Glucose, Whole Blood 108 mg/dL (60-115)
--- NOTE | 2022-07-08 12:14 | W.PM.OPN ---
Operative Note Operative Note Date of Service: 07/08/22 Narrative: Preop diagnosis: Invasive ductal carcinoma left breast Postop diagnosis: Invasive ductal carcinoma left breast Procedure: Left breast total mastectomy, with sentinel node biopsy Surgeon: Daniel Maurer MD employment legal assistant: BONIFACIO Chung The patient is a 56-year-old female who had been diagnosed to have invasive ductal carcinoma of the left breast. She had been evaluated as well by Oncology and was recommended to have neoadjuvant chemotherapy in view of the size of the calcifications based on the mammogram study She wanted to proceed with mastectomy without reconstruction. She understood that we needed to proceed with sentinel node biopsy of the axilla as well. She was aware of the risks, benefits, and alternatives. She had given consent I brought the operating room. She had undergone scintigraphy earlier with the Radiology Department. I had reviewed this films and there appeared to be 2 lymph nodes that were showing up. The left she was placed supine under general anesthesia via laryngeal mask airway. The left arm was abducted to expose the axilla. The left chest and the axilla were prepped and draped in the usual sterile fashion. A surgical time-out was done. The patient received cefazolin 2 g IV preoperatively I made an elliptical incision on the skin surrounding the lateral complex starting from just at the sternum all the way to near the tail of the breast using blade 15 after infiltration with lidocaine 1%. This incision was carried down through the full-thickness of the skin and subcutaneous fat. I proceeded to develop our superior flap. This skin was lifted up with Savi clamps. I proceeded to develop the superior flap, about 5 mm in thickness, starting from sternum being our medial border, superiorly towards the clavicle, and extending laterally to the edge of the pectoralis. We made sure that the flap was not too thin. I then proceeded to develop per inferior flap in the same fashion. The inferior flap was developed all the way inframammary fold, with the border being the sternum, extending laterally all the way towards the edge of the pectoralis as well. I then proceeded to do excise this entire breast tissue by developed complain of dissection between the LUAN and the tries muscle. I proceeded to then separate this fascia from the pectoralis muscle careful dissection using electrocautery and blunt dissection. I proceeded to lift this up and remove this entire breast tissue along this well-defined plane of dissection all the way to the edge of the pectoralis. This was then sent as a specimen. We had a few oozing areas which we had to control with electrocautery. These were the perforating vessels on the pectoralis muscle We then proceeded to do the sentinel node biopsy. I had changed gloves at this time. I proceeded to retract the flap at the lateral-most and superior aspect. This allowed as access into the axillary triangle. I used the gamma probe to identify and localize any elevated counts. I proceeded to enter the axillary fat pad gentle dissection with the Metzenbaum scissors, periodically using the guide the direction of the section. I was able to identify a lymph node and this was excised. This was labeled therefore as our sentinel node 1 with a count of 570. A 2nd sentinel node was found as well and was removed. The central no murmur 2 had a count of 216. There was no other elevated counts with the gamma probe in the background. After repeated scanning of the axilla comfort made no other elevated counts, we then proceeded to irrigate and observe him a stasis. Once hemostasis was inserted the axilla, we went back to the chest wall. Cauterized oozing areas. We copies irrigated the chest wall as well I then proceeded to position a SACHIN 7 drain through the inferior flap laterally via a small stab incision. This was secured to the skin with a nylon 3-0 stitch. The drain was position through the inferior flap going medially and towards the superior flap We reobserved for hemostasis. Once hemostasis was confirmed, we closed the subdermal layer with Dexon 3-0 interrupted sutures. Skin closure was achieved with Dexon 4-0 subcuticular running sutures. Steri-Strips and dressings were applied. Breast binder was also placed The patient tolerated procedure well. There were no immediate complications. Initial and final counts of sponges and instruments were correct. Estimated blood loss about 75 cc Patient was extubated without difficulty and transferred to the recovery room with stable vital signs. [place] node 1 with a count of 570 [place] node 2 with a count of 216 Breast [place] Node Biopsy Substrate(s) used for sentinel node biopsy in the neoadjuvant setting: Radiotracer All significantly radioactive nodes were removed, if radionuclide was used as the substrate for localization: No All palpably suspicious nodes were removed, if present: N/A If clips were placed in pathology-involved nodes, those nodes were identified and removed: N/A General Surg. - Synoptic Notes Breast [place] Node Biopsy Substrate(s) used for sentinel node biopsy in the neoadjuvant setting: Radiotracer All significantly radioactive nodes were removed, if radionuclide was used as the substrate for localization: No All palpably suspicious nodes were removed, if present: N/A If clips were placed in pathology-involved nodes, those nodes were identified and removed: N/A
[2022-07-08] MEDS: fentaNYL citrate/PF 100 MCG/2 ML VIAL 50 MCG IVPUSH (13:22)
[2022-07-08] MEDS: oxyCODONE HCl Immed Release 5 MG TABLET PO (13:43)
[2022-07-08] MEDS: Acetaminophen 325 MG TABLET 650 MG PO ×2 (13:44→20:21)
[2022-07-08 14:14] LABS: Glucose, Whole Blood 123 mg/dL (60-115)
--- NOTE | 2022-07-08 15:33 | PM.EVENT ---
Event Note Date of Service: 07/08/22 Event Note: Seen postop Underwent mastectomy and sentinel biopsy today Looks well Appears to have adequate pain control Dressings dry SACHIN drain with minimal output Stable vital signs Pain management Possible DC home tomorrow Time Spent With Patient Time: Total time managing care of this patient today ____ minutes.
[2022-07-08] MEDS: 0.9 % Sodium Chloride Flush 3 ML SYRINGE IVFLUSH (16:13)
[2022-07-08 20:13] LABS: Glucose, Whole Blood 209 mg/dL (60-115)
[2022-07-08] MEDS: Insulin Lispro 100 UNIT/ML 3 ML VIAL SUBCUT (20:22)
[2022-07-08] MEDS: Atorvastatin Calcium 80 MG TABLET PO (20:22)
--- NOTE | 2022-07-08 23:03 | PC.NURSE ---
5x2 cm hematoma found above left breast area post mastectomy, Dr Maurer was informed and he advised to apply cold compress. applied at 2300
[2022-07-09] MEDS: Acetaminophen 325 MG TABLET 650 MG PO ×3 (02:33→20:22)
[2022-07-09 03:38] VITALS: BP 139/70; PULSE 68; RESP 18; TEMP 36.1; O2SAT 99
[2022-07-09 07:43] LABS: Glucose, Whole Blood 110 mg/dL (60-115)
[2022-07-09 08:00] VITALS: BP 151/72; PULSE 88; RESP 18; TEMP 36.2; O2SAT 99
[2022-07-09] MEDS: metFORMIN HCl 1,000 MG TABLET 1000 MG PO ×2 (09:24→17:16)
[2022-07-09] MEDS: Cholecalciferol (Vitamin D3) 25 MCG TABLET 50 MCG PO (09:24)
[2022-07-09] MEDS: 0.9 % Sodium Chloride Flush 3 ML SYRINGE IVFLUSH ×3 (09:25→20:23)
[2022-07-09] MEDS: Losartan Potassium 50 MG TABLET PO (09:25)
[2022-07-09] MEDS: hydroCHLOROthiazide 12.5 MG TABLET PO (09:25)
--- NOTE | 2022-07-09 09:51 | P.PNGS_ITS ---
Subjective Subjective Date of Service: 07/09/22 Interval history: says she feels well had a good night some pain on left chest Physical Exam Vital Signs: Vital Signs: Last Vital Signs Temp 97.2 F 07/09/22 08:00 Pulse 88 07/09/22 08:00 Resp 18 07/09/22 08:00 BP 151/72 H 07/09/22 08:00 Pulse Ox 99 07/09/22 08:00 O2 Del Method 07/09/22 08:00 O2 Flow Rate 2 07/08/22 12:39 BMI result Body Mass Index 26.5 Const: Other: looks well General: comfortable and no acute distress Chest: Other: ecchymoses on upper flap, no hematoma; drain with about 15 cc of blood Resp: Effort & Inspection: normal respiratory effort Objective Data Active Medications Acetaminophen (Acetaminophen 325 Mg Tablet) 650 mg PO Q6H [facility] Last Admin: 07/09/22 09:25 Dose: 650 mg Documented By: TOMASA Atorvastatin Calcium (Atorvastatin Calcium 80 Mg Tablet) 80 mg PO BEDTIME [facility] Last Admin: 07/08/22 20:22 Dose: 80 mg Documented By: ARIS Dextrose (Dextrose 50 % 25 Gm/50 Ml Syringe) 25 gm IVPUSH Q15M PRN; Protocol PRN Reason: per Hypoglycemia Standing Ord. Docusate Sodium (Docusate Sodium 100 Mg Capsule) 100 mg PO BID PRN PRN Reason: constipation Fentanyl (Fentanyl Citrate/Pf 100 Mcg/2 Ml Vial) 50 mcg IVPUSH Q5M PRN; Protocol PRN Reason: Pain, Severe (Pain Scale 7-10) Last Admin: 07/08/22 13:22 Dose: 50 mcg Documented By: CLAUDINE Fentanyl (Fentanyl Citrate/Pf 100 Mcg/2 Ml Vial) 25 mcg IVPUSH Q5M PRN; Protocol PRN Reason: Pain, Moderate (Pain Scale 4-6 Glucose (Glucose Gel 15 Gm Gel..Gram.) 15 gm PO Q15M PRN; Protocol PRN Reason: per Hypoglycemia Standing Ord. Heparin Sodium (Porcine) (Heparin Sodium,Porcine 5,000 Unit/Ml Vial) 5,000 unit SUBCUT Q8H [facility] Hydrochlorothiazide (Hydrochlorothiazide 12.5 Mg Tablet) 12.5 mg PO DAILY [facility] Last Admin: 07/09/22 09:25 Dose: 12.5 mg Documented By: TOMASA Hydromorphone HCl (Hydromorphone Hcl 0.5 Mg/0.5 Ml Syringe) 0.5 mg IVPUSH Q5M PRN; Protocol PRN Reason: Pain, Severe (Pain Scale 7-10) Hydromorphone HCl (Hydromorphone Hcl 0.5 Mg/0.5 Ml Syringe) 0.25 mg IVPUSH Q5M PRN; Protocol PRN Reason: Pain, Severe (Pain Scale 7-10) Promethazine HCl 6.25 mg/ (Sodium Chloride) 50.25 mls @ 201 mls/hr IV ONCE PRN PRN Reason: Nausea and Vomiting Insulin Human Lispro (Insulin Lispro 100 Unit/Ml 3 Ml Vial) 0 unit SUBCUT QIDACHS [facility]; Protocol Last Admin: 07/09/22 08:40 Dose: Not Given Documented By: TOMASA Non-Admin Reason: No Insulin Coverage Losartan Potassium (Losartan Potassium 50 Mg Tablet) 50 mg PO DAILY [facility] Last Admin: 07/09/22 09:25 Dose: 50 mg Documented By: TOMASA Metformin HCl (Metformin Hcl 1,000 Mg Tablet) 1,000 mg PO BIDWM [facility] Last Admin: 07/09/22 09:24 Dose: 1,000 mg Documented By: TOMASA Comments: per MD Maurer start now Morphine Sulfate (Morphine Sulfate 2 Mg/Ml Cartridge) 3 mg IVPUSH Q3H PRN; Protocol PRN Reason: Pain, Severe (Pain Scale 7-10) Ondansetron HCl (Ondansetron Hcl 4 Mg/2 Ml Vial) 4 mg IVPUSH Q8H PRN PRN Reason: Nausea Ondansetron HCl (Ondansetron Hcl 4 Mg/2 Ml Vial) 4 mg IVPUSH ONCE PRN PRN Reason: Nausea and Vomiting Ondansetron HCl (Ondansetron Hcl 4 Mg/2 Ml Vial) 4 mg IVPUSH ONCE PRN PRN Reason: Nausea and Vomiting Oxycodone HCl (Oxycodone Hcl Immed Release 5 Mg Tablet) 5 mg PO Q4H PRN PRN Reason: Pain, Moderate (Pain Scale 4-6 Oxycodone HCl (Oxycodone Hcl Immed Release 5 Mg Tablet) 10 mg PO Q4H PRN PRN Reason: Pain, Severe (Pain Scale 7-10) Potassium Chloride (Potassium Chloride Er 10 Meq Capsule.Er) 10 meq PO DAILY [facility] Last Admin: 07/09/22 09:25 Dose: 10 meq Documented By: TOMASA Sodium Chloride (0.9 % Sodium Chloride Flush 3 Ml Syringe) 3 ml IVFLUSH QSHIFT [facility] Last Admin: 07/09/22 09:25 Dose: 3 ml Documented By: TOMASA Vitamin D (Cholecalciferol (Vitamin D3) 25 Mcg Tablet) 50 mcg PO DAILY [facility] Last Admin: 07/09/22 09:24 Dose: 50 mcg Documented By: TOMASA Zolpidem Tartrate (Zolpidem Tartrate 5 Mg Tablet) 5 mg PO BEDTIME PRN PRN Reason: Insomnia Labs Labs: Laboratory Results - last 24 hr 07/08/22 07/08/22 07/09/22 14:11 19:53 07:33 POC Glucose 123 H 209 H 110 Procedures Date of Service Date of Service: 07/09/22 Progress Note: A&P Assessment and plan (1) Invasive ductal carcinoma of breast: Status: Chronic Assessment and Plan: s/p left breast mastectomy, sentinel node biopsy doing well has ecchymoses on upper flap, some blood on drain - will observe another day pain mgt surgical site clean cold compress to ecchymoses Time Spent With Patient Time: Total time managing care of this patient today ____ minutes. Quality Stroke Does the patient have a stroke diagnosis?: No VTE Prior VTE?: No VTE Risk Level:: Medical - moderate - high VTE Device Contraindication: N/A - Device Ordered VTE Drug Contraindication: N/A - Med Ordered
[2022-07-09 11:26] LABS: Glucose, Whole Blood 105 mg/dL (60-115)
[2022-07-09] MEDS: Heparin Sodium,Porcine 5,000 UNIT/ML VIAL 5000 UNIT SUBCUT ×2 (12:29→20:23)
[2022-07-09 15:49] VITALS: BP 129/71; PULSE 74; RESP 18; TEMP 36.4; O2SAT 97
[2022-07-09 16:38] LABS: Glucose, Whole Blood 116 mg/dL (60-115)
[2022-07-09 19:43] VITALS: BP 134/77; PULSE 71; RESP 18; TEMP 36.7; O2SAT 98
[2022-07-09] MEDS: Atorvastatin Calcium 80 MG TABLET PO (20:23)
[2022-07-09 20:33] LABS: Glucose, Whole Blood 118 mg/dL (60-115)
[2022-07-10] MEDS: Acetaminophen 325 MG TABLET 650 MG PO ×2 (01:36→06:57)
[2022-07-10 04:00] VITALS: BP 154/84; PULSE 81; RESP 18; TEMP 36.5; O2SAT 98
[2022-07-10] MEDS: Heparin Sodium,Porcine 5,000 UNIT/ML VIAL 5000 UNIT SUBCUT (04:52)
[2022-07-10 08:00] VITALS: BP 122/70; PULSE 89; RESP 17; TEMP 36.8; O2SAT 98
[2022-07-10 08:00] LABS: Glucose, Whole Blood 111 mg/dL (60-115)
[2022-07-10] MEDS: metFORMIN HCl 1,000 MG TABLET 1000 MG PO (08:42)
[2022-07-10] MEDS: Cholecalciferol (Vitamin D3) 25 MCG TABLET 50 MCG PO (08:42)
[2022-07-10] MEDS: Losartan Potassium 50 MG TABLET PO (08:42)
[2022-07-10] MEDS: hydroCHLOROthiazide 12.5 MG TABLET PO (08:42)
[2022-07-10] MEDS: 0.9 % Sodium Chloride Flush 3 ML SYRINGE IVFLUSH (08:42)
[2022-07-10 09:34] LABS: Creatinine Clr Calc Pharmacy 64.5; Estimated Glomerular Filt Rate > 60
--- NOTE | 2022-07-10 09:44 | MHC.CM.PN ---
CM INFORMED PT WILL DC HOME TODAY PT INDEPENDENT WITH ALL CARE AT BASELINE HOWEVER WILL DC WITH SACHIN DRAINS REFERRALS SENT TO SEVERAL [facility] BASED ON INSURANCE CONTRACTS FAMILY WILL TRANSPORT
--- NOTE | 2022-07-10 10:27 | P.PNGS_ITS ---
Subjective Subjective Date of Service: 07/10/22 Interval history: feels well had a good night denies signficant pain Physical Exam Vital Signs: Vital Signs: Last Vital Signs Temp 98.3 F 07/10/22 08:00 Pulse 89 07/10/22 08:00 Resp 17 07/10/22 08:00 BP 122/70 07/10/22 08:00 Pulse Ox 98 07/10/22 08:00 O2 Del Method 07/10/22 08:00 O2 Flow Rate 2 07/08/22 12:39 BMI result Body Mass Index 26.5 Const: General: comfortable and no acute distress Chest: Other: ecchymoses on upper upper chests stable; flaps viable, no hematoma; incision clean; SACHIN drain scanty output Resp: Effort & Inspection: normal respiratory effort Cardio: Rate: regular rate GI: Palpation (GI): Soft to palpation Objective Data Active Medications Acetaminophen (Acetaminophen 325 Mg Tablet) 650 mg PO Q6H [facility] Last Admin: 07/10/22 06:57 Dose: 650 mg Documented By: HILDA Atorvastatin Calcium (Atorvastatin Calcium 80 Mg Tablet) 80 mg PO BEDTIME [facility] [place] Last Admin: 07/09/22 20:23 Dose: 80 mg Documented By: HILDA Dextrose (Dextrose 50 % 25 Gm/50 Ml Syringe) 25 gm IVPUSH Q15M PRN; Protocol PRN Reason: per Hypoglycemia Standing Ord. Docusate Sodium (Docusate Sodium 100 Mg Capsule) 100 mg PO BID PRN PRN Reason: constipation Fentanyl (Fentanyl Citrate/Pf 100 Mcg/2 Ml Vial) 50 mcg IVPUSH Q5M PRN; Protocol PRN Reason: Pain, Severe (Pain Scale 7-10) Last Admin: 07/08/22 13:22 Dose: 50 mcg Documented By: CLAUDINE Fentanyl (Fentanyl Citrate/Pf 100 Mcg/2 Ml Vial) 25 mcg IVPUSH Q5M PRN; Protocol PRN Reason: Pain, Moderate (Pain Scale 4-6 Glucose (Glucose Gel 15 Gm Gel..Gram.) 15 gm PO Q15M PRN; Protocol PRN Reason: per Hypoglycemia Standing Ord. Heparin Sodium (Porcine) (Heparin Sodium,Porcine 5,000 Unit/Ml Vial) 5,000 unit SUBCUT Q8H [facility] Last Admin: 07/10/22 04:52 Dose: 5,000 unit Documented By: HO.OZORALB Hydrochlorothiazide (Hydrochlorothiazide 12.5 Mg Tablet) 12.5 mg PO DAILY [facility] [place] Last Admin: 07/10/22 08:42 Dose: 12.5 mg Documented By: LUCRETIA Hydromorphone HCl (Hydromorphone Hcl 0.5 Mg/0.5 Ml Syringe) 0.5 mg IVPUSH Q5M PRN; Protocol PRN Reason: Pain, Severe (Pain Scale 7-10) Hydromorphone HCl (Hydromorphone Hcl 0.5 Mg/0.5 Ml Syringe) 0.25 mg IVPUSH Q5M PRN; Protocol PRN Reason: Pain, Severe (Pain Scale 7-10) Promethazine HCl 6.25 mg/ (Sodium Chloride) 50.25 mls @ 201 mls/hr IV ONCE PRN PRN Reason: Nausea and Vomiting Insulin Human Lispro (Insulin Lispro 100 Unit/Ml 3 Ml Vial) 0 unit SUBCUT QIDACHS [facility] [place]; Protocol Last Admin: 07/10/22 08:35 Dose: Not Given Documented By: LUCRETIA Non-Admin Reason: No Insulin Coverage Losartan Potassium (Losartan Potassium 50 Mg Tablet) 50 mg PO DAILY [facility] [place] Last Admin: 07/10/22 08:42 Dose: 50 mg Documented By: LUCRETIA Metformin HCl (Metformin Hcl 1,000 Mg Tablet) 1,000 mg PO BIDWM [facility] [place] Last Admin: 07/10/22 08:42 Dose: 1,000 mg Documented By: LUCRETIA Morphine Sulfate (Morphine Sulfate 2 Mg/Ml Cartridge) 3 mg IVPUSH Q3H PRN; Protocol PRN Reason: Pain, Severe (Pain Scale 7-10) Ondansetron HCl (Ondansetron Hcl 4 Mg/2 Ml Vial) 4 mg IVPUSH Q8H PRN PRN Reason: Nausea Ondansetron HCl (Ondansetron Hcl 4 Mg/2 Ml Vial) 4 mg IVPUSH ONCE PRN PRN Reason: Nausea and Vomiting Ondansetron HCl (Ondansetron Hcl 4 Mg/2 Ml Vial) 4 mg IVPUSH ONCE PRN PRN Reason: Nausea and Vomiting Oxycodone HCl (Oxycodone Hcl Immed Release 5 Mg Tablet) 5 mg PO Q4H PRN PRN Reason: Pain, Moderate (Pain Scale 4-6 Oxycodone HCl (Oxycodone Hcl Immed Release 5 Mg Tablet) 10 mg PO Q4H PRN PRN Reason: Pain, Severe (Pain Scale 7-10) Potassium Chloride (Potassium Chloride Er 10 Meq Capsule.Er) 10 meq PO DAILY [facility] [place] Last Admin: 07/10/22 08:42 Dose: 10 meq Documented By: LUCRETIA Sodium Chloride (0.9 % Sodium Chloride Flush 3 Ml Syringe) 3 ml IVFLUSH QSHIFT [facility] [place] Last Admin: 07/10/22 08:42 Dose: 3 ml Documented By: LUCRETIA Vitamin D (Cholecalciferol (Vitamin D3) 25 Mcg Tablet) 50 mcg PO DAILY [facility] [place] Last Admin: 07/10/22 08:42 Dose: 50 mcg Documented By: LUCRETIA Zolpidem Tartrate (Zolpidem Tartrate 5 Mg Tablet) 5 mg PO BEDTIME PRN PRN Reason: Insomnia Labs 07/10/22 09:06 Labs: Laboratory Results - last 24 hr 07/09/22 07/09/22 07/09/22 11:10 16:35 20:26 Estim Creat Clear Calc Estimated GFR POC Glucose 105 116 H 118 H 07/10/22 07/10/22 07:32 09:06 Estim Creat Clear Calc 64.5 Estimated GFR > 60 POC Glucose 111 Procedures Date of Service Date of Service: 07/10/22 Progress Note: A&P Assessment and plan (1) Invasive ductal carcinoma of breast: Status: Chronic Assessment and Plan: s/p mastectomy, SNB doing well ok to dc home had a long discussion with her in presence of freelance interpreter/translator about care of the surgical site ok to change dressings daily educate on drain care will see in office this week she says she is comfortable with instructions and plan dressings changed Time Spent With Patient Time: Total time managing care of this patient today ____ minutes. Quality Stroke Does the patient have a stroke diagnosis?: No VTE Prior VTE?: No VTE Risk Level:: Medical - moderate - high VTE Device Contraindication: N/A - Device Ordered VTE Drug Contraindication: N/A - Med Ordered
--- NOTE | 2022-07-10 11:15 | HO.POSTANES ---
Post Anesthesia Evaluation Post Anesthesia Evaluation Vital Signs: Vital Signs Temp Pulse Resp BP Pulse Ox O2 Del Method 07/10/22 08:00 98.3 F 89 17 122/70 98 Room Air 07/10/22 04:00 97.7 F 81 18 154/84 H 98 Room Air Anesthesia: General LMA Mental Status: Awake Pain Control: Satisfactory Nausea/Vomiting: None Hydration: Adequate Anesthesia-Related Issues: No Anes. Related Issues
--- NOTE | 2022-07-10 11:45 | PC.NURSE ---
patient is alert and oriented, here for left mastectomy, discharge instructions give by Dr Maurer and this RN with the help of a lamination builder. Verbalize understanding SACHIN drain care and discharge instructions. Implantable port to right chest flushed with heparin and de-accessed. Leaving transported in a and accompanied by hospital staff. Family awaiting outside hospital building.
--- NOTE | 2022-07-13 10:53 | P.DS_ITS ---
DS: Providers Provider Date of Service: 07/10/22 Primary care physician: Jenae Morin MD Attending physician on admission: Daniel Maurer Attending physician on discharge: Daniel Maurer DS: Diagnosis Discharge Diagnosis (1) Invasive ductal carcinoma of breast: Status: Chronic DS: Summary Hospital Course Hospital Course: HPI: The patient is a 56-year-old female who had been diagnosed to have invasive ductal carcinoma of the left breast. She had been evaluated by Oncology and was recommended to have neoadjuvant chemotherapy in view of the size of the calcifications based on the mammogram study. She wanted to proceed with mastectomy without reconstruction. She understood that we needed to proceed with sentinel node biopsy of the axilla as well. She had given consent. HOSPITAL COURSE: On 07/08/22, a left simple mastectomy with left axillary sentinel lymph node biopsy was performed by Dr. Maurer without complication. The patient tolerated the procedure well and was admitted following for observation. She had an uncomplicated recovery course. She had some ecchymosis of the superior flap and sanguineous SACHIN drain output on POD #1 and therefore remained inpatient for two days post operatively for observation and pain control. On the day of discharge, she was tolerating a solid diet. She had adequate pain control on PO analgesics. Her mastectomy incision was clean and her SACHIN output decreased and was more serosanguineous in nature. She felt ready for discharge. She was comfortable with SACHIN drain care and dressing changes. She was discharged to home on 07/10/22 in stable condition. She is to follow up with Dr. Maurer in office this week for wound and drain check. Status at Discharge Functional status at discharge: independent ambulation Overall status at discharge: patient is progressing back to baseline Time Spent with Patient Time attestation: Total time managing care of this patient today ____ minutes. Discharge coordination time: Greater than 30 minutes Quality: Safe Use of Opioids Does Pt have an Active Cancer Diagnosis on the Problem List?: Yes Opioid Measure Date for [facility] Report: 06/13/22 Opioid Measure Time for [facility] Report: 10:58 Quality: Stroke Does the patient have a stroke diagnosis?: No Physical Exam Vital Signs: Vital Signs: Last Vital Signs Temp 98.3 F 07/10/22 08:00 Pulse 89 07/10/22 08:00 Resp 17 07/10/22 08:00 BP 122/70 07/10/22 08:00 Pulse Ox 98 07/10/22 08:00 O2 Del Method 01/08/23 08:00 O2 Flow Rate 2 07/08/22 12:39 BMI result Body Mass Index 26.5 Const: General: comfortable, no acute distress, well developed and alert Orientation/consciousness: patient oriented x3 Chest: Other: left mastectomy site with clean incision, well approximated, some ecchymosis of upper flap, SACHIN with serosanguineous drainage Resp: Effort & Inspection: normal respiratory effort Skin: General skin exam: no rashes or lesions noted Neuro: General: patient oriented x3 Extrem: General: Yes no clubbing, cyanosis or edema DS: Data Data Completed and Pending Pending studies at discharge: Pending at discharge 07/08/22 12:00 Surgical [PTH] Routine Discharge Plan Discharge Patient Disposition: Home, Self-Care Referrals: Jenae Morin MD [Primary Care Provider] - 1 Week Daniel Maurer MD [Physician] - 1 Week Discharge Medications: New oxycodone-acetaminophen [Percocet] 5-325 mg tablet 1 tab PO Q4-6H PRN (Reason: pain) Qty: 30 0RF Rx Instructions: Partial Fill upon patient request. No Action ondansetron 8 mg Tablet,Disintegrating 8 mg PO Q8H PRN (Reason: Nausea) Qty: 30 3RF potassium chloride [K-Tab] 10 mEq Tablet Extended Release 10 meq PO DAILY Qty: 30 0RF loperamide [Imodium] 2 mg Capsule 2 mg PO Q4H PRN (Reason: Diarrhea) Rx Instructions: administer after each loose stool until symptoms controlled; do not exceed 8 mg per 24 hrs losartan-hydrochlorothiazide 50-12.5 mg tablet 1 tab PO DAILY atorvastatin 80 mg tablet 80 mg PO QPM cholecalciferol (vitamin D3) 50 mcg (2,000 unit) tablet 50 mcg PO DAILY Certavite-Antioxidant 18-400 mg-mcg tablet 1 tab PO DAILY metformin 500 mg tablet 1,000 mg PO BID Discharge Orders: Discharge Order (Routine); Ordered 07/10/22 Ordered By: Daniel Maurer Diet: Advance to usual diet Activity on Discharge: No heavy lifting Activity Restrictions/Additional Instructions: empty SACHIN drain twice a day and record output warm compress to bruising on upper chest If the incision area is tender, you may apply an ice pack for short intervals (No more than 20 minutes on, followed by at least 20 minutes off). Do not apply heat. Do not use creams, lotions, or topical antibiotics unless instructed to do so by your surgeon. These can cause infection or allergic reaction. OK to shower OK to change daily with gauze No lifting more than 20 lbs No strenuous activities Call the office for follow-up this week Jul 13 Call Your Doctor If: -Your temperature exceeds 101.5? F -You experience excessive pain or swelling -You have an unexpected reaction to medication -You have excessive bleeding -You experience continued vomiting/nausea -Your incision begins to separate -Your incision shows signs of infection such as increased redness, swelling, excessive pain, drainage (light blood or clear fluid is normal) or heat Discharge Date/Time: 07/10/22 12:16
== END 2022-07-10 12:16 | disposition home or self-care (01) ==
LOC: HO.SSS 07:36 → HO.S3 13:53
PROVIDERS: PCP Internal Medicine; Visit Provider Surgery
PROC: (CPT 19303; principal; 2022-07-08 11:00)
PROC: (CPT 19303; 2022-07-08 11:00)
DX: C50.412 Malignant neoplasm of upper-outer quadrant of left female breast (principal); Z17.1 Estrogen receptor negative status [ER-]; Z92.21 Personal history of antineoplastic chemotherapy; E11.9 Type 2 diabetes mellitus without complications; I10 Essential (primary) hypertension; E78.00 Pure hypercholesterolemia, unspecified; Z79.84 Long term (current) use of oral hypoglycemic drugs; F12.90 Cannabis use, unspecified, uncomplicated
CPT/HCPCS: 19303; 38525; 36415; 78195; 82565; 82947; 88307; 88341; 88342; A9520; J0690; J1100; J1642; J1643; J2250; J2405; J2795; J3010

== ENCOUNTER → 2022-07-14 15:12 | Outpatient (BNVA) | payer MEDICAID, SELFPAY | PROVIDERS: PCP Internal Medicine; Visit Provider Surgery | DX: Z13.89 Encounter for screening for other disorder (principal) ==

== ENCOUNTER → 2022-07-21 09:22 | Outpatient (BNVA) | payer MEDICAID, SELFPAY | PROVIDERS: PCP Internal Medicine Geriatric Medicine; Visit Provider Surgery | DX: Z13.89 Encounter for screening for other disorder (principal) ==

== ENCOUNTER → 2022-08-04 09:52 | Outpatient (BNVA) | payer MEDICAID, SELFPAY | PROVIDERS: PCP Internal Medicine Geriatric Medicine; Visit Provider Surgery | DX: Z13.89 Encounter for screening for other disorder (principal) ==

== ENCOUNTER → 2022-08-29 15:38 | Outpatient (REF) | payer MEDICAID, SELFPAY ==
--- NOTE | 2022-08-29 15:41 | CA_ITS ---
Transthoracic Echocardiogram Limited Patient (Last, First, Middle): Keesha Joaquin, Gender: Female Date of : 1965 Age: 56 Procedure Date: 08/29/2022 Procedure Type: Transthoracic Echocardiogram Limited Location: OP Height: 160.02 cm Weight: 59.42 kg BSA: 1.62 m2 Heart Rate: bpm BP: 116 / 66 [address] Crier: PIERRE Referring MD: Nova Olson MD Log Processor Operator: Holden Bowden MD Symptoms: C50.919 Adverse effect of chemotherapy Study Quality: Fair ECG Rhythm: Sinus Conclusions: - Low normal LV ejection fraction 50-55% with normal filling pattern Findings Left Ventricle Normal left ventricular cavity size. There is normal left ventricular wall thickness. The left ventricular systolic function is low normal. The visually estimated ejection fraction is between 50-55%. Spectral Doppler is indicative of a normal filling pattern. Peak GLS is -14.0%, which is reduced. Prior Study Comparison Changes noted compared to prior study. Both LV ejection fraction as well as global longitudinal strain have reduced Measurements 2D Linear Measurements IVSd: 0.83 0.6-0.9/0.6-1.0 cm LVIDd: 4.54 3.9-5.3/4.2-5.9 cm LVIDd Index: 2.80 2.4-3.2/2.2-3.1 cm/m2 LVIDs: 3.32 2.0-3.6 cm LVPWd: 0.85 0.7-1.1 cm LV Mass: 152.59 67-162/88-224 g LV Mass Index: 94.19 43-95/49-115 g/m2 LVOT Diam: 1.90 3.0+(-)1.3 cm 2D Systolic Function EF 4C: 56.20 >55% EF 2C: 53.70 >55% EF BiP: 53.20 >55% LVOT LVOT Pk Cody: 0.85 LVOT Mn Cody: 0.59 LVOT VTI: 0.20 LVOT Pk Grad: 3.00 LVOT Mn Grad: 2.00 LVOT Diam: 1.90 LVOT Area: 2.84 Tricuspid Valve TR Pk Cody: 2.28 TR Pk Grad: 21.00 RA Press: 3.00 RVSP: 24.00 Updated in Other Vendor System with Status of Final Holden Bowden MD electronically signed on 08/30/2022 1:39:27 PM with status of Final
== END ==
LOC: HO.CARD 15:38
PROVIDERS: PCP Internal Medicine Geriatric Medicine; Visit Provider Internal Medicine
DX: C50.919 Malignant neoplasm of unspecified site of unspecified female breast (principal)
CPT/HCPCS: 93308; 93356

== ENCOUNTER 2022-09-15 12:55 | Outpatient (REF) | payer MEDICAID, SELFPAY ==
--- NOTE | ~2022-09-15 | XR_ITS ---
EXAMINATION: XR KNEE, LEFT CLINICAL INFORMATION: Pain. COMPARISON: Radiographs dated 01/30/2017. TECHNIQUE: AP, lateral, tunnel, and sunrise views of the left knee. FINDINGS: Bony alignment and mineralization are normal. The lateral and medial joint space compartments are well-maintained and show minimal peripheral osteophyte formation. There is slight spurring of the bilateral tibial spines. The patellofemoral compartment is well-maintained and shows mild peripheral osteophyte formation, most pronounced inferiorly. An enthesophyte is seen of the upper pole of the patella at the quadriceps tendon insertion. No fracture, dislocation joint effusion is seen. There are mild popliteal atherosclerotic calcifications. No foreign body is seen. 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
== END 2022-09-15 12:56 | disposition home or self-care (01) ==
LOC: HO.XRAY 12:55
PROVIDERS: Visit Provider Internal Medicine Geriatric Medicine
DX: M25.562 Pain in left knee (principal)
CPT/HCPCS: 73564

== ENCOUNTER → 2022-10-11 15:41 | Outpatient (REF) | payer MEDICAID, SELFPAY ==
--- NOTE | 2022-10-11 15:43 | CA_ITS ---
Transthoracic Echocardiogram Patient (Last, First, Middle): Keesha Joaquin, Gender: Female Date of : 1965 Age: 57 Procedure Date: 10/11/2022 Procedure Type: Transthoracic Echocardiogram Location: OP Height: 160.02 cm Weight: 72.12 kg BSA: 1.75 m2 Heart Rate: bpm BP: 138 / 76 mmHg Protein Scientist: VITALY Referring MD: Nova Olson MD [facility]as Clinical Programmer: Holden Bowden MD Symptoms: decrease in EF on prior echo, on HER 2 therapy Study Quality: Adequate ECG Rhythm: Sinus Conclusions: - 1. Normal LV systolic function with normal diastolic filling pattern 2. Trivial aortic regurgitation 3. Normal RV systolic pressure 4. No gross pericardial effusion Findings Left Ventricle Normal left ventricular size, thickness, and systolic function. The visually estimated ejection fraction is between 60-65%. Spectral Doppler is indicative of a normal filling pattern. Peak GLS is -19%, which is within normal limits. Right Ventricle Normal right ventricular cavity size and systolic function. Atria Both atria are normal in size. There is no evidence of interatrial shunt. Aortic Valve Normal aortic valve structure and function. There is no aortic valve stenosis. There is trace (trivial) aortic valve regurgitation. Mitral Valve Normal mitral valve structure and function. There is trace mitral valve regurgitation. There is no mitral valve stenosis. Pulmonic Valve The pulmonic valve is likely normal. Tricuspid Valve Normal tricuspid valve structure. There is trace tricuspid valve regurgitation. The right ventricular systolic pressure is normal. The right ventricular systolic pressure is 31 mmHg. Normal right atrial pressure. There is no evidence of pulmonary hypertension. Great Vessels All visible segments of the aorta are normal in size. The pulmonary artery was not well visualized. Venous The inferior vena cava is normal in size and collapses greater than 50% with inspiration. Pericardium/Pleural There is no evidence of pericardial effusion. Prior Study Comparison Changes noted compared to prior study dated: 08/29/2022. LV ejection fraction has improved Measurements 2D Linear Measurements IVSd: 0.87 0.6-0.9/0.6-1.0 cm LVIDd: 4.77 3.9-5.3/4.2-5.9 cm LVIDd Index: 2.73 2.4-3.2/2.2-3.1 cm/m2 LVIDs: 3.46 2.0-3.6 cm LVPWd: 0.90 0.7-1.1 cm LA Diam: 3.30 2.7-3.8/3.0-4.0 cm LAIDs Index: 1.89 1.5-2.3 cm/m2 LV Mass: 177.51 67-162/88-224 g LV Mass Index: 101.43 43-95/49-115 g/m2 LVOT Diam: 1.90 3.0+(-)1.3 cm 2D Systolic Function EF 4C: 57.70 >55% EF 2C: 61.80 >55% EF BiP: 60.10 >55% Mitral Valve MV Pk E: 0.91 MV PK A: 0.86 MV Decel Time: 202.00 E/A: 1.10 E'Lateral: 10.40 E'Medial: 9.79 E/E' Med: 9.30 E/E' Lat: 8.80 PHT: 59.00 MVA PHT: 3.73 Decel Mercer: 4.53 Aortic Valve AoV Pk Cody: 1.68 AoV Mn Cody: 1.17 AoV VTI: 0.38 AoV Pk Grad: 11.00 Aov Mn Grad: 6.00 CHRISTOPHER Cont.VTI: 2.23 LVOT LVOT Pk Cody: 1.33 LVOT Mn Cody: 0.88 LVOT VTI: 0.30 LVOT Pk Grad: 7.00 LVOT Mn Grad: 4.00 LVOT Diam: 1.90 LVOT Area: 2.84 Diastolic Function MV Pk E: 0.91 MV Pk A: 0.86 E/A: 1.10 E'Medial: 9.79 E/E' Med: 9.30 E' Laterial: 10.40 E/E' Lat: 8.80 Right Ventricle TAPSE (mm): 24.40 TVS' Cody: 11.90 Tricuspid Valve TR Pk Cody: 2.40 TR Pk Grad: 23.00 RA Press: 8.00 RVSP: 31.00 Great Vessels Aorta Sinus of Valsalva: 2.98 2.0-3.5 cm Ao Asc: 3.30 2.1-3.4 cm Updated in Other Vendor System with Status of Final Holden Bowden MD electronically signed on 10/12/2022 3:33:07 PM with status of Final
== END ==
LOC: HO.CARD 15:41
PROVIDERS: PCP Internal Medicine Geriatric Medicine; Visit Provider Internal Medicine
DX: C50.919 Malignant neoplasm of unspecified site of unspecified female breast (principal)
CPT/HCPCS: 93306; 93356

== ENCOUNTER 2022-10-20 07:40 | Outpatient (REF) | payer MEDICAID, SELFPAY ==
--- NOTE | ~2022-10-20 | XR_ITS ---
EXAMINATION: XR KNEE AP STANDING CLINICAL INFORMATION: Right knee pain COMPARISON: 09/15/2022 TECHNIQUE: AP bilateral standing view of the knees was obtained. FINDINGS: Single AP view is unremarkable with the bilateral standing knees. XR/XR knee standing BI IMPRESSION: Single AP view is unremarkable with the bilateral standing knees.
== END 2022-10-20 07:41 | disposition home or self-care (01) ==
LOC: HO.HOSX 07:40
PROVIDERS: Visit Provider Physician Assistant
DX: M23.92 Unspecified internal derangement of left knee (principal); M25.561 Pain in right knee; R42 Dizziness and giddiness; Z91.81 History of falling
CPT/HCPCS: 73565; 99202

== ENCOUNTER 2022-12-16 15:29 | Outpatient (REF) | payer MEDICAID, SELFPAY ==
--- NOTE | ~2022-12-16 | MR_ITS ---
EXAMINATION: MR KNEE WITHOUT CONTRAST, LEFT CLINICAL INFORMATION: Left knee pain COMPARISON: Radiographs 10/20/2022 TECHNIQUE: MRI of the knee without contrast was performed using routine sequences on a high-field scanner. FINDINGS: MENISCI: Medial Meniscus: Full-thickness tear at and adjacent to the root posterior horn with extrusion of the meniscal body. Lateral Meniscus: Intact LIGAMENTS: Cruciate: Intact Collateral: Intact EXTENSOR MECHANISM: Intact ARTICULAR CARTILAGE/BONE: Patellofemoral Compartment: Near full-thickness cartilage loss with adjacent chondral fissuring of the medial patellar facet. Cartilage thinning and surface irregularity with marginal osteophytes of the medial trochlea. Medial Compartment: Cartilage thinning and surface irregularity throughout the weightbearing aspect with peripheral subchondral marrow edema of the tibia and small marginal osteophytes. Lateral Compartment: Normal JOINT FLUID AND BURSAE: Small joint effusion with diffuse synovitis/debris. Moderately sized Morin's cyst. MR/MR knee LT wo con IMPRESSION: 1. Full-thickness tear at and adjacent to the root of the posterior horn of the medial meniscus with extrusion of the meniscal body. 2. Moderate patellofemoral and medial compartment osteoarthritis. Small joint effusion with diffuse synovitis/debris. Moderately sized Morin's cyst.
== END 2022-12-16 15:30 | disposition home or self-care (01) ==
LOC: HO.MRI 15:29
PROVIDERS: PCP Internal Medicine Geriatric Medicine; Visit Provider Physician Assistant
DX: M23.92 Unspecified internal derangement of left knee (principal)
CPT/HCPCS: 73721

== ENCOUNTER 2023-01-25 15:24 | Outpatient (AMB) | payer MEDICAID, SELFPAY ==
[2023-01-25 15:30] VITALS: BP 158/75; PULSE 72; BMI 25.5
--- NOTE | 2023-01-25 15:30 | A.OFFVIS_ITS ---
Intake Vital Signs 01/25/23 15:30 Height 5 ft 3 in Weight 144 lb BMI 25.5 BP 158/75 H Blood Pressure Location Rt brachial Position Sitting Pulse 72 Intake Visit Reasons: Breast exam, 6 month follow up Intake Note: This patient presents for a six month follow-up breast examination assessment. Patient c/o; discomfort when bending down, denies any other breast complaints at this time. Content Creation Manager Required: Yes Content Creation Manager Language: Instructor Tap Dancing Name: Oscar Information Interpreted: non-clinical & clinical Accompanied by: Other Relationship Allergies No Known Allergies Allergy (Verified 01/25/23 15:32) Medication List - Last Reconciled 01/25/23 by Daniel Maurer MD atorvastatin 80 mg PO QPM cholecalciferol (vitamin D3) 50 mcg PO DAILY loperamide 2 mg PO Q4H PRN losartan-hydrochlorothiazide 50-12.5 mg 1 tab PO DAILY metformin 1,000 mg PO BID neekexlztxzo-lery-lalif acid 18-400 mg-mcg (Certavite-Antioxidant) 1 tab PO DAILY ondansetron 8 mg PO Q8H PRN potassium chloride ER (K-Tab) 10 mEq PO DAILY tramadol 50 mg PO Q8H PRN HPI Breast exam, 6 month follow up HPI Details She is here for follow-up after left breast mastectomy last July, for invasive ductal cancer. She had a clinical stage 2 invasive cancer at that time and she had undergone neoadjuvant treatment. After mastectomy, there was no residual invasive cancer seen although she had DCIS. She is still undergoing chemotherapy with pertuzumab and Taxotere with Dr. Olson. She is to postop finish this next month. She says she is doing well. She denies any palpable masses at this time. She says she has been tolerating treatment well. [facility] Medical History Breast calcification, left Breast calcification, right COVID-19 vaccine series completed Diabetes Elevated cholesterol HTN (hypertension) Invasive ductal carcinoma of breast Port-A-Cath in place Surgical History H/O colonoscopy H/O mastectomy Family History Father CVD (cardiovascular disease) Social History Household Members: None Housing: Apartment Are you a primary manager wound care to a significant other at home: No Do you presently have visiting nurse or other home services: No Patient Tobacco Use Status: Never used Tobacco Substance Use Type: Marijuana service: No Current occupational status: unemployed Review of Systems Const Denies chills and Denies fever(s) Card Denies chest pain, Denies dyspnea and Denies dyspnea on exertion Resp Denies cough, Denies dyspnea and Denies dyspnea on exertion GI Denies hematochezia and Denies change in bowel habits Denies hematuria Musc Denies back pain and Denies limited range of motion Neuro Denies focal weakness and Denies convulsions Psych Denies depression and Denies mood swings Physical Exam Vital Signs: Last Vital Signs Pulse 72 01/25/23 15:30 BP 158/75 H 01/25/23 15:30 BMI result Body Mass Index 25.5 Const General: comfortable and no acute distress Orientation/consciousness: patient oriented x3 Neck Neck: Yes no lymphadenopathy Chest Other: Port-A-Cath on the right chest, no palpable masses on the right breast, no axillary lymphadenopathy, mastectomy site on the left well-healed, no palpable masses no axillary lymphadenopathy on the left as well Resp Auscultation: clear to auscultation bilaterally Cardio Rhythm: regular rhythm GI Palpation (GI): Soft to palpation, nontender and no guarding Neuro General: patient oriented x3 Assessment & Plan Assessment & Plan (1) Invasive ductal carcinoma of breast: Code(s): C50.919 - Malignant neoplasm of unspecified site of unspecified female breast Plan: status post left breast mastectomy and sentinel node biopsy last July, for invasive ductal cancer. She is doing very well. There are no palpable masses. She is still undergoing treatment with pertuzumab and Herceptin with Dr. Olson. She is to complete this next month. I reminded her that she is due for mammogram of her right breast dated this year. I will see her again in about 6 months. Overall, she seems to being he doing well with treatment. Coding Level of Care Code Est Pt Level 3 (80173) Diagnoses Invasive ductal carcinoma of breast C50.919
== END 2023-01-25 15:42 | disposition home or self-care (01) ==
PROVIDERS: Visit Provider Surgery
DX: C50.919 Malignant neoplasm of unspecified site of unspecified female breast (principal)
CPT/HCPCS: 99213

== ENCOUNTER → 2023-01-25 15:24 | Outpatient (BNVA) | payer MEDICAID, SELFPAY | PROVIDERS: Visit Provider Surgery | DX: C50.912 Malignant neoplasm of unspecified site of left female breast (principal); Z90.12 Acquired absence of left breast and nipple; Z79.69 Long term (current) use of other immunomodulators and immunosuppressants | CPT/HCPCS: 99212 ==

== ENCOUNTER 2023-03-30 15:56 | Outpatient (REF) | payer MEDICAID, SELFPAY ==
--- NOTE | ~2023-03-30 | MM_ITS ---
EXAMINATION: MM SCREENING DIGITAL BREAST TOMOSYNTHESIS, BILATERAL CLINICAL INFORMATION: Screening. Asymptomatic. The patient is status post left mastectomy for cancer diagnosed in 2021. COMPARISON: Mammography: This study is compared with prior exams dating back to TECHNIQUE: Digital breast tomosynthesis is performed in both the craniocaudal and mediolateral oblique views along with computer-aided detection (CAD). Synthesized 2D images are generated from the tomosynthesis. FINDINGS: The breasts are heterogeneously dense, which may obscure small masses (ACR BI-RADS breast composition Category c). In the upper outer quadrant of the right breast, there is a focal asymmetry in close proximity to the tissue marker from a prior benign biopsy. The finding may be related to the patient's inability to tolerate compression for the standard views. Nonetheless, additional mammographic imaging of the focal asymmetry is advised.There are no significant masses, abnormal calcifications or other findings. MM/MM tomosynthesis screening RT IMPRESSION: No mammographic evidence of malignancy. ASSESSMENT: BI-RADS BI-RADS 0 - Incomplete: Needs additional Imaging. RECOMMENDATION: 1. Additional views of the right breast. 2. Targeted ultrasound if warranted after review of the additional views. 3. Radiology department staff will contact the patient for additional imaging. Additional Imaging required This examination should not preclude the clinical evaluation of a suspicious palpable abnormality. This patient's information was entered into a reminder system with a target due date for their next mammogram.
== END 2023-03-30 15:57 | disposition home or self-care (01) ==
LOC: HO.MAMMO 15:56
PROVIDERS: Visit Provider Internal Medicine Geriatric Medicine
DX: Z12.31 Encounter for screening mammogram for malignant neoplasm of breast (principal)
CPT/HCPCS: 77063; 77067

== ENCOUNTER → 2023-03-30 16:15 | Outpatient (BNV) | payer MEDICAID, SELFPAY | PROVIDERS: Visit Provider Radiology Diagnostic Radiology | DX: Z12.31 Encounter for screening mammogram for malignant neoplasm of breast (principal) | CPT/HCPCS: 77063; 77067 ==

== ENCOUNTER → 2023-05-04 15:00 | Outpatient (BNV) | payer MEDICAID, SELFPAY | PROVIDERS: PCP Internal Medicine Geriatric Medicine; Visit Provider Radiology Diagnostic Radiology | DX: R92.321 Mammographic fibroglandular density, right breast (principal); R92.331 Mammographic heterogeneous density, right breast | CPT/HCPCS: 76642; 77061; 77065 ==

== ENCOUNTER 2023-05-04 15:15 | Outpatient (REF) | payer MEDICAID, SELFPAY ==
--- NOTE | ~2023-05-04 | US_ITS ---
EXAMINATION: MM DIAGNOSTIC DIGITAL BREAST TOMOSYNTHESIS, RIGHT US BREAST LIMITED, RIGHT MAMMOGRAPHY: CLINICAL INFORMATION: Evaluate focal asymmetry seen near prior benign biopsy clip, posterior upper and slightly medial right breast. COMPARISON: Mammography: 03/22/2023, and exams dating back to 2017. TECHNIQUE: Digital right breast tomosynthesis is performed utilizing 3-D spot compression right CC and MLO views. FINDINGS: There are scattered areas of fibroglandular density (ACR BI-RADS breast composition Category b). Diagnostic views demonstrate no definite persistent abnormality in the region of concern right breast, slightly medial posterior axis. A top hat-shaped biopsy clip is noted. There is no mass, or developing asymmetry. There is no persistent suspicious abnormality. The parenchymal pattern is stable from prior exams. ULTRASOUND: CLINICAL INFORMATION: As above. COMPARISON: None relevant. TECHNIQUE: Targeted sonographic evaluation was performed using a high frequency linear transducer. Attention was given to the posterior upper and medial right breast. Selected archived documentation. FINDINGS: RIGHT BREAST: There is heterogeneously dense fibroglandular tissue. No suspicious mass is seen. There is no pathologic acoustic shadowing. There is no cystic abnormality or edema within the soft tissue planes. No ultrasonographic correlate to the asymmetric density is evident. US/US breast RT limited mamm only IMPRESSION: There are no persistent findings suspicious for malignancy. Stable benign findings including post benign biopsy clip upper and slightly medial right breast. Recommend the patient return to routine annual screening. OVERALL ASSESSMENT: Mammography: BI-RADS 2 - Benign Findings Ultrasound: BI-RADS 2 - Benign Findings RECOMMENDATION: 1 year F/U Results were provided to the patient at time of visit by the technologist. This patient's information was entered into a reminder system with a target due date for their next mammogram.
== END 2023-05-04 15:16 | disposition home or self-care (01) ==
LOC: HO.MAMMO 15:15
PROVIDERS: PCP Internal Medicine Geriatric Medicine; Visit Provider Internal Medicine Geriatric Medicine
DX: N64.89 Other specified disorders of breast (principal)
CPT/HCPCS: 76642; 77061; 77065

== ENCOUNTER 2023-07-14 14:27 | Outpatient (REF) | payer MEDICAID, SELFPAY ==
--- NOTE | ~2023-07-14 | MM_ITS ---
EXAMINATION: BONE DENSITOMETRY CLINICAL INDICATION: Postmenopausal bone loss. COMPARISON: This is the patient's baseline examination. TECHNIQUE: Using a zappit DXA System (software version: 13.1) manufactured by [employer] in [place], dual-energy x-ray absorptiometry was performed of the lumbar spine and left hip. The images are of good technical quality. Summary results are attached. FINDINGS: LEFT FEMUR, NECK: BMD 0.946 g/cm2, Z-score 0.5, T-score -0.7, normal. LEFT FEMUR, TOTAL: BMD 1.037 g/cm2, Z-score 1.0, T-score 0.2, normal. AP SPINE L1-L4: BMD 1.369 g/cm2, Z-score 2.6, T-score 1.6, normal. IDENTIFIED RISK FACTORS: Height loss, menopause. HISTORY OF FRACTURE: None listed. MEDICATIONS: Calcium supplements or multivitamin, vitamin D. MM/XR DEXA axial skeleton IMPRESSION: 1. DIAGNOSIS: Normal bone density based on the lowest T-score value of -0.7 in the femoral neck applying World Health Organization criteria. 2. 10-YEAR FRACTURE RISK PREDICTION, FRAX: According to the guidelines, FRAX calculation should only be performed on patients in the osteopenia bone density category. Therefore, FRAX was not performed on this patient. 3. Treatment Recommendations: NOF guidelines recommend consideration for treatment in postmenopausal women and men age 50 and older presenting with the following: -A hip or vertebral (clinical or morphometric) fracture. -T-score less than or equal to -2.5 at the femoral neck or spine after appropriate evaluation to exclude secondary causes. -Low bone mass at the hip or spine and a 10-year fracture probability by FRAX of greater than or equal to 3% for hip fracture or greater than or equal to 20% for major osteoporotic fracture based on the [place] adapted WHO algorithm. 4. Other Recommendations: All treatment decisions require clinical judgment and consideration of individual patient factors, including patient preferences, comorbidities, previous drug use, risk factors not captured in the FRAX model (e.g. frailty, falls, vitamin D deficiency, increased bone turnover, interval significant decline in bone density) and possible under or overestimation of fracture risk by FRAX. FUTURE SCAN RECOMMENDATION: People with diagnosed cases of osteoporosis or at high risk for fracture should have regular bone mineral density tests. For patients eligible for Medicare, routine testing is allowed once every 2 years. The testing frequency can be increased to one year for patients who have rapidly progressing disease, those who are receiving or discontinuing medical therapy to restore bone mass, or have additional risk factors.
== END 2023-07-14 14:28 | disposition home or self-care (01) ==
LOC: HO.MAMMO 14:27
PROVIDERS: Visit Provider Internal Medicine
DX: Z13.820 Encounter for screening for osteoporosis (principal); N81.0 Urethrocele; Z78.0 Asymptomatic menopausal state; C50.919 Malignant neoplasm of unspecified site of unspecified female breast
CPT/HCPCS: 77080

== ENCOUNTER 2023-08-14 15:13 | Outpatient (AMB) | payer MEDICAID, SELFPAY ==
[2023-08-14 15:23] VITALS: BMI 26.6
--- NOTE | 2023-08-14 15:23 | A.OFFVIS_ITS ---
Intake Vital Signs 08/14/23 15:23 Height 5 ft 3 in Weight 150 lb BMI 26.6 Intake Visit Reasons: 6 month breast exam Intake Note: This patient presents for a six month breast examination assessment. Patient c/o; reports occasional discomfort surgical area. 07/14/23: Bone density 05/04/23:Breast mammo additional views Cath Lab Tech Required: Yes Cath Lab Tech Language: Short Filler Bunch Machine Operator Name: Oscar Information Interpreted: non-clinical & clinical Accompanied by: Significant Other Allergies No Known Allergies Allergy (Verified 08/14/23 15:29) HPI 6 month breast exam HPI Details She is here for fo llow-up after left breast mastectomy last July, for invasive mona yared cancer. She h ad a clinical stag e 2 invasive cance r at that time and she had undergone neoadjuvant treat ment. After maste ctomy, there was n o residual invasiv e cancer seen alth ough she had DCIS. She she also c ompleted adjuvant chemotherapy with pertuzumab and Tax otere with Dr. Anurag sanders. She says s he is doing well. She denies any pa lpable masses at t his time. She mahoney d a mammogram for the right breast l ast May, . This was a BI-R ADS 2 mammogram an d she was recommen ded a yearly mammo gram for continued screening. [facility] Medical History (Updated 08/14/23 @ 15:45 by Daniel Maurer MD) History of left breast cancer Port-A-Cath in place COVID-19 vaccine series completed Diabetes Elevated cholesterol HTN (hypertension) Invasive ductal carcinoma of breast Breast calcification, right Breast calcification, left Surgical History H/O mastectomy H/O colonoscopy Family History Father CVD (cardiovascular disease) Social History Household Members: None Housing: Apartment Are you a primary respiratory care technician to a significant other at home: No Do you presently have visiting nurse or other home services: No Patient Tobacco Use Status: Never used Tobacco Substance Use Type: Marijuana service: No Current occupational status: unemployed Review of Systems Const Denies chills and Denies fever(s) Card Denies chest pain, Denies dyspnea and Denies dyspnea on exertion Resp Denies cough, Denies dyspnea and Denies dyspnea on exertion GI Denies hematochezia and Denies change in bowel habits Denies hematuria Musc Denies back pain and Denies limited range of motion Neuro Denies focal weakness and Denies convulsions Psych Denies depression and Denies mood swings Physical Exam Vital Signs: BMI result Body Mass Index 26.6 Const General: comfortable and no acute distress Orientation/consciousness: patient oriented x3 Neck Neck: Yes no lymphadenopathy Chest Other: Mastectomy site on the left well healed, no palpable masses on the chest wall, no axillary lymphadenopathy, no palpable masses on the right breast nor axillary lymphadenopathy either Resp Auscultation: clear to auscultation bilaterally Cardio Rhythm: regular rhythm GI Palpation (GI): Soft to palpation, nontender and no guarding Neuro General: patient oriented x3 Assessment & Plan Assessment & Plan (1) History of left breast cancer: Code(s): Z85.3 - Personal history of malignant neoplasm of breast Plan: She is doing very well after mastectomy and sentinel biopsy along with chemotherapy for left breast invasive ductal cancer, stage II. Current exam does not reveal any palpable masses on the chest wall on the left as well as the breast on the right She is scheduled for her follow-up mammogram in May,. Her last mammogram last May was unremarkable. I advised her to continue to follow-up with her oncologist Dr. Olson as well. I will see her in the office in about 6 weeks for another exam. Coding Level of Care Code Est Pt Level 3 (08024) Diagnoses History of left breast cancer Z85.3
== END 2023-08-14 15:44 | disposition home or self-care (01) ==
PROVIDERS: PCP Internal Medicine Geriatric Medicine; Referring Provider Internal Medicine Geriatric Medicine; Visit Provider Surgery
DX: Z85.3 Personal history of malignant neoplasm of breast (principal)
CPT/HCPCS: 99213

== ENCOUNTER → 2023-08-14 15:13 | Outpatient (BNVA) | payer MEDICAID, SELFPAY | PROVIDERS: PCP Internal Medicine Geriatric Medicine; Visit Provider Surgery | DX: Z85.3 Personal history of malignant neoplasm of breast (principal) | CPT/HCPCS: 99212 ==

== ENCOUNTER 2023-11-06 15:19 | Outpatient (REF) | payer MEDICAID, SELFPAY ==
[2023-11-06 16:17] LABS: MANUAL DIFF FLAG NO
[2023-11-06 16:27] LABS: Basophils Absolute Auto 0.1 X10*3/uL (0.0-0.2); Basophils Percent Auto 0.5 % (0-2); Eosinophils Absolute Auto 0.2 X10*3/uL (0.0-0.4); Eosinophils Percent Auto 1.7 % (0-4); Hematocrit 38.2 % (37.0-47.0); Hemoglobin 12.6 g/dl (12.0-16.0); Imm Gran Abs Auto 0.03 X10*3/uL (0.00-0.03); Imm Gran Pct Auto 0.3 % (0.0-0.4); Lymphocytes Absolute Auto 4.1 X10*3/uL (1.2-4.9); Lymphocytes Percent Auto 39.1 % (20-40); Mean Corpuscular Hemoglobin 30.4 pg (27.0-33.0); Mean Corpuscular Volume 92.3 fL (80.0-98.0); Monocytes Absolute Auto 0.7 X10*3/uL (0.1-1.2); Monocytes Percent Auto 6.9 % (2-11); Neutrophils Absolute Auto 5.5 x10*3/uL (2.0-8.3); Neutrophils Percent Auto 51.5 % (45-73); Platelet Count 249 X10*3/uL (160-400); Red Blood Count 4.14 X10*6/uL (4.20-5.50); Red Cell Distribution Width 13.4 % (11.0-16.0); White Blood Count 10.6 X10*3/uL (4.8-10.8)
[2023-11-06 17:46] LABS: Creatinine Urine 124.09 mg/dL; Microalbum/Creatinine Ratio Ur 8.8 ug/mg cr (<30)
[2023-11-06 17:49] LABS: Alanine Aminotransferase 16 U/L (0-31); Albumin Level 4.1 g/dL (3.5-5.0); Alkaline Phosphatase 82 U/L (39-117); Anion Gap 15 (12-20); Aspartate Amino Transferase 13 U/L (5-31); Bilirubin Total 0.2 mg/dL (0.0-1.0); Blood Urea Nitrogen 18 mg/dL (9-16); Calcium 9.9 mg/dL (8.4-10.2); Carbon Dioxide 26 mmol/L (22-29); Chloride 104 mmol/L (96-108); Cholesterol 236 mg/dL (<200); Estimated Glomerular Filt Rate 56; Glucose Random 98 mg/dL (60-115); HDL Cholesterol 54 mg/dL (>40); LDL Cholesterol Calculated 142 mg/dL (<100); Potassium 3.5 mmol/L (3.3-5.1); Sodium 141 mmol/L (135-145); Total Protein 7.4 g/dL (6.5-8.0); Triglycerides 202 mg/dL (<150)
[2023-11-07 04:19] LABS: HIV AB/AG Nonreactive (Nonreactive); HIV Num 1 0.08 S/CO (0.00-0.99); ~HepC Num1 0.09 S/CO (0.00-0.79); ~Hepatitis C Antibody Nonreactive (Nonreactive)
[2023-11-17 03:14] LABS: HPV mRNA E6/E7 rflx Not Detected (Not Detected)
== END 2023-11-06 15:20 | disposition home or self-care (01) ==
LOC: HO.HHCL 15:19
PROVIDERS: Advanced Practice Midwife; Visit Provider Internal Medicine Geriatric Medicine
DX: E11.29 Type 2 diabetes mellitus with other diabetic kidney complication (principal); I10 Essential (primary) hypertension; E78.49 Other hyperlipidemia; Z11.4 Encounter for screening for human immunodeficiency virus [HIV]; Z11.59 Encounter for screening for other viral diseases
CPT/HCPCS: 36415; 80053; 80061; 82043; 82570; 85025; 86803; 87389

== ENCOUNTER 2023-12-04 15:16 | Outpatient (REF) | payer MEDICAID, SELFPAY ==
[2023-12-04 16:08] LABS: MANUAL DIFF FLAG NO
[2023-12-04 16:17] LABS: Basophils Absolute Auto 0.1 X10*3/uL (0.0-0.2); Basophils Percent Auto 0.5 % (0-2); Eosinophils Absolute Auto 0.2 X10*3/uL (0.0-0.4); Eosinophils Percent Auto 1.6 % (0-4); Hematocrit 36.5 % (37.0-47.0); Hemoglobin 12.2 g/dl (12.0-16.0); Imm Gran Abs Auto 0.03 X10*3/uL (0.00-0.03); Imm Gran Pct Auto 0.3 % (0.0-0.4); Lymphocytes Absolute Auto 3.5 X10*3/uL (1.2-4.9); Lymphocytes Percent Auto 38.2 % (20-40); Mean Corpuscular HGB Conc 33.4 g/dl (31.0-35.0); Mean Corpuscular Hemoglobin 30.7 pg (27.0-33.0); Mean Corpuscular Volume 91.9 fL (80.0-98.0); Monocytes Absolute Auto 0.7 X10*3/uL (0.1-1.2); Monocytes Percent Auto 7.4 % (2-11); Neutrophils Absolute Auto 4.8 x10*3/uL (2.0-8.3); Platelet Count 235 X10*3/uL (160-400); Red Blood Count 3.97 X10*6/uL (4.20-5.50); Red Cell Distribution Width 13.3 % (11.0-16.0); White Blood Count 9.2 X10*3/uL (4.8-10.8)
[2023-12-04 16:29] LABS: Alanine Aminotransferase 11 U/L (0-31); Albumin Level 4.2 g/dL (3.5-5.0); Alkaline Phosphatase 80 U/L (39-117); Anion Gap 11 (12-20); Aspartate Amino Transferase 14 U/L (5-31); Bilirubin Total 0.2 mg/dL (0.0-1.0); Blood Urea Nitrogen 22 mg/dL (9-16); Calcium 10.2 mg/dL (8.4-10.2); Carbon Dioxide 29 mmol/L (22-29); Chloride 104 mmol/L (96-108); Estimated Glomerular Filt Rate > 60; Glucose Random 94 mg/dL (60-115); Potassium 4.5 mmol/L (3.3-5.1); Sodium 139 mmol/L (135-145); Total Protein 7.5 g/dL (6.5-8.0)
== END 2023-12-04 15:17 | disposition home or self-care (01) ==
LOC: HO.HHCL 15:16
PROVIDERS: Visit Provider Internal Medicine
DX: C50.919 Malignant neoplasm of unspecified site of unspecified female breast (principal)
CPT/HCPCS: 36415; 80053; 85025

== ENCOUNTER 2024-01-31 16:00 | Outpatient (RCR) | payer MEDICAID, SELFPAY | END 2024-03-27 09:48 | disposition home or self-care (01) | LOC: HO.PT 16:00 | PROVIDERS: PCP Internal Medicine Geriatric Medicine; Visit Provider Internal Medicine Geriatric Medicine | DX: M17.0 Bilateral primary osteoarthritis of knee (principal) | CPT/HCPCS: 97110; 97112; 97161; 97530; 97535 ==

== ENCOUNTER → 2024-05-10 15:00 | Outpatient (BNV) | payer MEDICAID, SELFPAY | PROVIDERS: PCP Internal Medicine Geriatric Medicine; Visit Provider Internal Medicine | DX: Z12.31 Encounter for screening mammogram for malignant neoplasm of breast (principal) | CPT/HCPCS: 77063; 77067 ==

== ENCOUNTER 2024-05-10 15:03 | Outpatient (REF) | payer MEDICAID, SELFPAY ==
--- NOTE | ~2024-05-10 | MM_ITS ---
EXAMINATION: MM SCREENING DIGITAL BREAST TOMOSYNTHESIS, RIGHT CLINICAL INFORMATION: Screening. Asymptomatic. Left mastectomy. COMPARISON: Mammography: This study is compared with prior exams dating back to TECHNIQUE: Digital breast tomosynthesis is performed in both the craniocaudal and mediolateral oblique views along with computer-aided detection (CAD). Synthesized 2D images are generated from the tomosynthesis. FINDINGS: The breasts are heterogeneously dense, which may obscure small masses (ACR BI-RADS breast composition Category c). There are no significant masses, abnormal calcifications, or other abnormalities. MM/MM tomosynthesis screening RT IMPRESSION: No mammographic evidence of malignancy. ASSESSMENT: BI-RADS BI-RADS 1 - Negative RECOMMENDATION: Routine annual mammography screening. 1 year F/U This examination should not preclude the clinical evaluation of a suspicious palpable abnormality. This patient's information was entered into a reminder system with a target due date for their next mammogram. Electronically signed by: Afia Lehman DO 05/10/2024 04:27 PM EDUARDO HALL
== END 2024-05-10 15:04 | disposition home or self-care (01) ==
LOC: HO.MAMMO 15:03
PROVIDERS: PCP Internal Medicine Geriatric Medicine; Visit Provider Internal Medicine Geriatric Medicine
DX: Z12.31 Encounter for screening mammogram for malignant neoplasm of breast (principal)
CPT/HCPCS: 77063; 77067

== ENCOUNTER 2024-10-14 15:34 | Outpatient (REF) | payer MEDICAID, SELFPAY ==
[2024-10-14 16:38] LABS: Creatinine Urine 103.53 mg/dL; Microalbum/Creatinine Ratio Ur 12.5 ug/mg cr (<30)
[2024-10-14 16:39] LABS: Alanine Aminotransferase 19 U/L (0-31); Albumin Level 4.3 g/dL (3.5-5.0); Alkaline Phosphatase 98 U/L (39-117); Anion Gap 10 (12-20); Aspartate Amino Transferase 19 U/L (5-31); Bilirubin Total 0.3 mg/dL (0.0-1.0); Blood Urea Nitrogen 17 mg/dL (9-16); Calcium 9.8 mg/dL (8.4-10.2); Carbon Dioxide 26 mmol/L (22-29); Chloride 106 mmol/L (96-108); Cholesterol 228 mg/dL (<200); Estimated Glomerular Filt Rate 55; Glucose Random 139 mg/dL (60-115); HDL Cholesterol 44 mg/dL (>40); LDL Cholesterol Calculated 120 mg/dL (<100); Sodium 138 mmol/L (135-145); Total Protein 7.7 g/dL (6.5-8.0); Triglycerides 322 mg/dL (<150)
--- OUTSIDE RECORDS SUMMARY | 2024-10-14 18:01 | XMS_ITS | Clinical Summary ---
Author Organization [employer] Address [address] [place] [address] Care Team Providers Care Distributor Publications Name Role Phone Name, London FREED Primary Care Provider [phone] Allergies Active Allergy Reactions Criticality Noted Date Comments Acetaminophen Unknown 06/04/2013 Lisinopril Cough 07/30/2010 Oxycodone Unknown 06/04/2013 Medications Blood Pressure Monitoring (Omron 3 Series BP Monitor) device USE TO CHECK BLOOD PRESSURE EVERY DAY 10/28/19 22 Active Diclofenac Sodium 1 % cream Apply once a day to the affected knee 100 g 2 05/29/20 23 Active atorvastatin (Lipitor) 80 MG tablet Take 1 tablet (80 mg) by mouth in the evening. 90 tablet 1 07/12/19 24 Active cholecalciferol (Vitamin D-3) 50 MCG (1999) tablet TAKE 1 TABLET BY MOUTH EVERY MORNING 90 tablet 1 10/03/19 24 Active Multiple Vitamins-Minera ls (CertaVite/Anti oxidants) tablet TAKE 1 TABLET BY MOUTH EVERY DAY WITH BREAKFAST 90 tablet 1 10/03/19 24 Active empagliflozin-m etFORMIN (Synjardy) 5-500 MGIndications:T ype 2 diabetes mellitus with hyperglycemia, without long-term current use of insulin (CMS/HCC) Take 1 tablet by mouth with breakfast and with evening meal. 60 tablet 11 10/08/19 25 026 Active losartan (Cozaar) 100 MG tabletIndicatio ns:Type 2 diabetes mellitus with hyperglycemia, without long-term current use of insulin (CMS/HCC) Take 1 tablet (100 mg) by mouth Once per day. 30 tablet 11 10/08/19 25 026 Active FREESTYLE LITE test strip Use to test blood sugar one time daily 100 each 12 10/08/19 25 026 Active Lancets misc Use to test blood sugar one times daily 100 each 10/08/19 25 Active Alcohol Swabs 70 % pads Use to test blood sugar one times daily 100 each 10/08/19 25 Active Blood Glucose Monitoring Suppl (FreeStyle [place] Lite) w/Device kit Use to test blood sugar one times daily 1 kit 10/08/19 25 Active TRUEplus Lancets 33G misc Use to test blood sugar twice daily 025 Discontinued(Th erapy completed) Alcohol Swabs pads Use before testing blood sugar twice daily 025 Discontinued(Du plicate order (will not trigger notification to Pharmacy)) metFORMIN (Glucophage) 500 MG tablet Take 2 tablets (1,000 mg) by mouth with breakfast and with evening meal. 360 tablet 1 07/12/19 24 025 Discontinued( erapy completed) losartan (Cozaar) 50 MG tabletIndicatio ns:Type II or unspecified type diabetes mellitus with renal manifestations, not stated as uncontrolled(25 0.40) (CMS/[facility]) TAKE 1 TABLET BY MOUTH EVERY MORNING 90 tablet 04/17/20 24 025 Discontinued(Do se adjustment) Active Problems Problem Noted Date Diagnosed Date H/O left mastectomy 07/15/2022 Overview (07/15/2022): 07/08/2022 Dr Maurer Infiltrating ductal carcinoma of left female carmelo ast 12/24/2021 Overview (09/15/2022): She has invasive ductal carcinoma of the left breast, Dx 10/2021, ER/AZ negative, HER 2 positive. She did neoadjuvant chemotherapy and had left mastectomy with sentinel node biopsy 07/08/2022. On Herceptin/Pertuzumab as of 08/2022 Type 2 diabetes mellitus wit h kidney complication, with long-term current use of insulin 12/24/2021 Tinea pedis 10/27/2021 Hyperlipidemia 10/27/2021 Essential hypertension 10/27/2021 Knee pain, bilateral 10/27/2021 Persistent microalbuminuria due to type 2 diabetes mellitus (CMS/HCC) 10/27/2021 Encounters Date Type Department Care Team Description 10/07/2024 11:00 AM EDT Office Visit [facility] MEDICINE [address] [place] [address] NameLondon MD Type 2 diabetes mellitus with hyperglycemia, without long-term current use of insulin ([facility]) (Primary Dx); Essential hypertension 10/07/2024 Travel 10/04/2024 Telephone [facility] MEDICINE [address] [place] [address] NameLondon MD DCF (Called patient regarding insurance inactive . Patient didn't know I said she can come to insurance enrollment teaching young before appointment to see if they can help with insurance before appt time. Patient agreed to come early to insurance enrollment. ) 09/13/2024 Population Health Risk Score [facility] ([facility]) Department [address] [phone] Provider, Population Health Generic 09/06/2024 Telephone [facility] MEDICINE [address] [place] [address] Sdaaf Johnson [place] May recall from Last 3 Months Immunizations Name Administration Dates Next Due Influenza injectable quadriv alent IIV4 with preservative 03/21/2023,03/23/2016 Influenza injectable quadriv alent preservative free 06/18/2021,05/04/2017 Influenza, IIV3, injectable 05/06/2014, 1,04/30/2010 Influenza, Split (incl. ranjit fied surface antigen) 03/28/2013,05/01/2012 Influenza, seasonal, injecta ble, preservative free 04/16/2024 Pfizer Covid-19 Vaccine 12+ 04/16/2024 Pneumococcal Conjugate PCV 20 05/29/2023 Pneumococcal Polysaccharide PPSV23 05/01/2012 Tdap 12/27/2022,03/11/2011 Social History Tobacco Use Types Packs/Day Years Used Date Smoking Tobacco: Former Smokeless Tobacco: Never Tobacco Cessation:Counseling Given: Not Answered Alcohol Use Standard Drinks/Week Comments Never 0 (1 standard drink = 0.6 oz pur e alcohol) Alcohol Answer Date Recorded Frequency of Alcohol Consumption Not on file 01/02/2024 Average Number of Drinks Not on file 024 Frequency of Binge Drinking Not on file 08/2023 Score 0 01/02/2024 Depression Answer Date Recorded Patient Health Questionnaire-9 Score 0 09/26/2023 Patient Health Questionnaire-9 Score 0 09/26/2023 Last PHQ-9: Questionnaire Data Not on file 0 09/26/2023 Housing Stability Answer Date Recorded What is your housing situation today? I have margie mills 09/26/[address] you li ve. Do you have problems with any of the following? None of the above 09/26/2023 Food Insecurity Answer Date Recorded Within the past 12 months, y ou worried that your food would run out before you got money to buy more: Never True 09/26/2023 Within the past 12 months,th e food you bought just didn't last and you didn't have enough money to get more: Never True Transportation Answer Date Recorded In the past 12 months, has l ack of transportation kept you from medical appts, meetings, work or from getting things needed for daily living? No 09/26/2023 Utilities Answer Date Recorded In the past 12 months, has t he electric, gas, oil or water company threatened to shut off services in your home? No 09/26/2023 Depression Answer Date Recorded Patient Health Questionnaire-2 Score 0 09/26/2023 Comments No Sex and Gender Information Value Date Recorded Sex Assigned at Female 05/02/2022 10:16 AM EDT Legal Sex Female 10:16 AM EDT Gender Identity Female 05/02/2022 10:16 AM EDT Sexual Orientation Lesbian or [place] 05/02/2022 10 :16 AM EDT Last Filed Vital Signs Vital Sign Reading Time Taken Comments Blood Pressure 152/79 10/07/2024 10:54 AM EDT Pulse 74 10/07/2024 10:54 AM EDT Temperature 36.6 ??C (97.8 ??F) 10/07/2024 10:54 AM E DT Respiratory Rate 18 10/07/2024 10:54 AM EDT Oxygen Saturation 100% 10/07/2024 10:54 AM EDT Inhaled Oxygen Concentration - - Weight 77.8 kg (171 lb 9.6 oz) 10/07/2024 10:54 AM EDT Height 160 cm (5' 3 ) 10/07/2024 10:54 AM EDT Body Mass Index 30.4 10/07/2024 10:54 AM EDT Plan of Treatment Upcoming Encounters Date Type Department Care Team (Late st Contact Info) Description 10/17/2024 3:30 PM EDT Clinical Support [facility] MEDICINE [address] [place] [address] 03/27/2025 3:00 PM EDT Office Visit [facility] OPTOMETRY [address] [place] [address] Davi, Sailaja, OD [address] [place] [address] Health Maintenance Due Date Last Done Comments CT Colonography 1965 FIT DNA/Cologuard 1965 FIT 1965 FOBT 1965 Sigmoidoscopy 1965 Zoster Vaccines (1 of 2) 2014 Dental Prophylaxis 01/27/2016 07/28/2015, 0 07/16/2010, 10/08/2009, Additional history exists Dental X-Ray: Full Mouth 06/05/2016 06/04/2013 Dental X-Ray: Bitewings 07/29/2016 07/28/2015, 06/04 Dental Oral Exam 08/22/2016 02/19/2016, , 06/04/2013 Diabetes: Foot Exam 04/12/2024 04/12/2023, 04/12/2023, 04/12/2023 RSV Patients and Patients Aged 60 years or older (1 - Risk 60-74 years 1-dose series) 2024 Depression Screening 09/25/2024 09/26/2023, 09/26/19 24 SDOH Screening 09/25/2024 09/26/2023 Alcohol/Substance Use Screening 01/01/2025 01/02/2024 Diabetes: Hemoglobin A1C 01/06/2025 025, 09/26/2023, 12/26/2022, Additional history exists Mammogram 05/10/2025 05/10/2024, 08/2022, 05/04/2023, Additional history exists Colonoscopy 06/22/2025 06/22/2015 Colorectal Cancer Screening 06/22/2025 Tobacco Screening 10/07/2025 10/07/2024 Lipid Panel 10/14/2025 10/14/2024, 05/0 12/2023, 07/15/2022 Eye Exam 03/26/2026 03/26/2024, 03/04, 03/26/2024, Additional history exists Cervical Cancer Screening 11/08/2028 HPV/Cotest 11/08/2028 11/09/2023 Pap Smear 11/08/2028 11/09/2023, 07/06/2015 DTaP/Tdap/Td Vaccines (3 - Td or Tdap) 12/27/2032 12/27/2022, 03/11/2011 Pneumococcal Vaccine: 50+ Years Completed 05/29/2023, 05/01/2012 HIV Screening Completed 11/06/2023 Hepatitis C Screening Completed 11/06/2023 COVID-19 Vaccine Completed 04/16/2024, , 10/12/2020 Influenza Vaccine Completed 04/16/2024, , 06/18/2021, Additional history exists HIB Vaccines Aged Out No longer eligi ble based on patient's age to complete this topic HPV Vaccines Aged Out No longer eligi ble based on patient's age to complete this topic Hepatitis A Vaccines Aged Out No long er eligible based on patient's age to complete this topic Hepatitis B Vaccines Aged Out No long er eligible based on patient's age to complete this topic IPV Vaccines Aged Out No longer eligi ble based on patient's age to complete this topic Meningococcal Vaccine Aged Out No vira ebonie eligible based on patient's age to complete this topic RSV under 20 months Aged Out No longe r eligible based on patient's age to complete this topic Rotavirus Vaccines Aged Out No longer eligible based on patient's age to complete this topic Procedures Procedure Name Priority Date/Time Associated Diagnosis Comments ALBUMIN, RANDOM URINE W/CREATININE Routine 10/14/2024 3:36 PM EDT Type 2 diabetes mellitus with hyperglycemia, without long-term current use of insulin (CMS/HCC) LIPID PANEL, STANDARD Routine 10/14/2024 3:36 PM EDT Type 2 diabetes mellitus with hyperglycemia, without long-term current use of insulin (CMS/HCC) COMPREHENSIVE METABOLIC PANEL Routine 10/14/2024 3:36 PM EDT Type 2 diabetes mellitus with hyperglycemia, without long-term current use of insulin (CMS/HCC) POCT GLYCATED HEMOGLOBIN, TOTAL Routine 10/07/2024 11:03 AM EDT Type 2 diabetes mellitus with hyperglycemia, without long-term current use of insulin (CMS/HCC) POCT GLUCOSE Routine 10/07/2024 11:00 AM EDT Type 2 diabetes mellitus with hyperglycemia, without long-term current use of insulin (CMS/HCC) BI MAMMOGRAM SCREENING TOMOSYNTHESIS RIGHT Routine 05/10/2024 3:10 PM EST HPV MRNA E6/E7 REFLEX TO HPV 16, 18/45 Routine 11/09/2023 1:08 PM EDT PAP SMEAR Routine 11/09/2023 1:08 PM EDT Cervical cancer screening HEPATITIS C ANTIBODY Routine 11/06/2023 3:21 PM EDT Need for hepatitis C screening test HIV 1/2 ANTIGEN/ANTIBODY, FOURTH GENERATION W/RFL Routine 11/06/2023 3:21 PM EDT Screening for HIV (human immunodeficiency virus) PERIODIC ORAL EVALUATION - ESTABLISHED PATIENT Routine 02/19/2016 12:00 AM EDT PROPHYLAXIS - ADULT Routine 07/28/2015 1 2:00 AM EST BITEWINGS - 4 RADIOGRAPHIC IMAGES Routine 07/28/2015 12:00 AM EST HM COLONOSCOPY Routine 06/22/2015 11:12 AM EST INTRAORAL - COMPLETE SERIES OF RADIOGRAPHIC IMAGES Routine 06/04/2013 12:00 AM EST from Last 3 Months or Most Recently Relevant to Health Maintenance Results * Albumin, Random Urine W/Creatinine (10/14/2024 3:36 PM EDT) Creatinine, Urine 103.53 mg/dL [facility] Microalbumin Urine 13.0 mg/L H [facility] Microalbum Creatinine Ratio Ur 12.5 <30 ug/mg cr [facility] Comment:Albumin/Creatinine R atio Reference Ranges: Normal: < 30 ug/mg creatinine Microalbuminuria: 30 - 300 ug/mg creatinineClinical Albuminuria: > 300 ug/mg creatinine Urine (Urine, Random) 10/14/2024 3:36 PM EDT 10/14/2024 3:59 PM EDT us London Clark MD LAB URINE ORDERABLES Final Resul t [facility] [address] [place] [address] [phone] * (ABNORMAL) Lipid Panel, Standard (10/14/2024 3:36 PM EDT) Triglycerides 322(H) <150 mg/dL [facility] Comment:Desirable Triglyceri de: less than 150 mg/dLBorderline High Triglyceride 150-199 mg/dLHigh Triglyceride: 200-499 mg/dLVery High Triglyceride: greater than or equal to 5OO mg/dL Cholesterol 228(H) <200 mg/dL [facility] Comment:Desirable Cholestero l: less than 200 mg/dLBorderline High Cholesterol: 200-239 mg/dLHigh Cholesterol: greater than 239 mg/dL LDL Cholesterol Calculated 120(H) <100 mg/dL [facility] Comment:Desirable LDL: less than 100 mg/dLNear Optimal/Above Optimal LDL: 110- 129 mg/dLBorderline High LDL: 130-159 mg/dLHigh LDL: 160-189 mg/dLVery High LDL: greater than or equal to 190 mg/dL HDL Cholesterol 44 >40 mg/dL [facility] Comment:Desirable HDL: great er than 40 mg/dL Note: This HDL assay may give artificially low results in patients with liver disease. Blood Venous blood specimen / Unknown 10/14/2024 3:36 PM EDT 10/14/2024 4:02 PM EDT us London Clark MD LAB BLOOD ORDERABLES Final Resul t Performing Organization Address [facility]/ZIP Co de Phone Number [facility] [address] [place] [address] [phone] * (ABNORMAL) Comprehensive Metabolic Panel (10/14/2024 3:36 PM EDT) Sodium 138 135 - 145 mmol/L [facility] Potassium 4.0 3.3 - 5.1 mmol/L [facility] Chloride 106 96 - 108 mmol/L [facility] Carbon Dioxide 26 22 - 29 mmol/L [facility] Anion Gap 10(L) 12 - 20 [facility] Urea Nitrogen (BUN) 17(H) 9 - 16 mg/dL [facility] Creatinine, Serum 1.03 0.5 - 1.4 mg/dL [facility] Estimated Glomerular Filt Rate 55 [facility] Comment:Chronic Kidney Disea se: Estimated GFR < 60 mL/min/1.09v1Ylcuet Kidney Disease: Estimated GFR < 15 mL/min/1.73m2 Glucose 139(H) 60 - 115 mg/dL [facility] Calcium 9.8 8.4 - 10.2 mg/dL [facility] Bilirubin, Total 0.3 0.0 - 1.0 mg/dL [facility] Aspartate Amino Transferase 19 5 - 31 U/L [facility] Alanine Aminotransferase 19 0 - 31 U/L [facility] Total Protein 7.7 6.5 - 8.0 g/dL [facility] Albumin Level 4.3 3.5 - 5.0 g/dL [facility] Alkaline Phosphatase 98 39 - 117 U/L [facility] Blood Venous blood specimen / Unknown 10/14/2024 3:36 PM EDT 10/14/2024 4:02 PM EDT London Clark MD LAB BLOOD ORDERABLES Final Resul t Performing Organization Address City/[facility]/ZIP Co de Phone Number [facility] [address] [place] [address] [phone] * (ABNORMAL) POCT HGB A1C (10/07/2024 11:03 AM EDT) Hemoglobin A1C 7.3(A) 4.0 - 6.0 % QC Media Lot # [id number] Lot# Expiration Date [id number] Blood 10/07/2024 11:0 3 AM EDT London Clark MD POINT OF CARE TEST ENTER/EDIT OR DERABLES Final Result * POCT Glucose (10/07/2024 11:00 AM EDT) Glucose Blood, POC 164 60 - 200 mg/dL QC Media Lot # [id number] Lot# Expiration Date [id number] Blood Capillary blood specimen / Unknown 10/07/2024 11:00 AM EDT London Clark MD POINT OF CARE TEST ENTER/EDIT OR DERABLES Final Result * BI Mammogram Screening Tomosynthesis Right (05/10/2024 3:10 PM EST) Anatomical Region Laterality Modality Breast Right Mammography 05/10/2024 3:10 PM EST Narrative 05/10/2024 4:30 PM EST ? [facility] ? [address] ?[place] [id number] ? Mammography Report ? Signed ? Patient: Joaquin,Keesha ?MR#: [id number] ? : 1965 ?Acct:[id number] ? Age/Sex: 58 / F ?ADM Date: 11/08/24 ? Loc: HO.MAMMO ? Attending Dr: London Name MD ? Ordering Physician: Name,London MD ?Results: 1Negative ? Date of Service: 05/10/24 ?Follow Up: 1 Year From Orig ?? inal Mammogram ? Procedure(s): MM tomosynthesis screening RT ?? Accession Number(s): [id number] ? cc: Nova Olson MD; Name,London FREED ? EXAMINATION: ?? MM SCREENING DIGITAL BREAST TOMOSYNTHESIS, RIGHT ? CLINICAL INFORMATION: ? Screening. Asymptomatic. ??Left mastectomy. ? COMPARISON: ?? Mammography: This study is compared with prior exams dating back to ? TECHNIQUE: ?? Digital breast tomosynthesis is performed in both the craniocaudal and ?? mediolateral oblique views along with computer-aided detection (CAD). ? Synthesized 2D images are generated from the tomosynthesis. ? FINDINGS: ?? The breasts are heterogeneously dense, which may obscure small masses ?? (ACR BI-RADS breast composition Category c). ? There are no significant masses, abnormal calcifications, or other ?? abnormalities. ? MM/MM tomosynthesis screening RT ?? IMPRESSION: ?? No mammographic evidence of malignancy. ? ASSESSMENT: ? BI-RADS BI-RADS 1 - Negative ? RECOMMENDATION: ?? Routine annual mammography screening. ? 1 year F/U ? This examination should not preclude the clinical evaluation of a ?? suspicious palpable abnormality. ? This patient's information was entered into a reminder system with a ?? target due date for their next mammogram. ? Electronically signed by: ??Afia Lehman DO ??05/10/2024 04:27 PM EST ?? RP ? Dictated By: ?Afia Lehman DO ? Signed By: ?<Electronically signed by Afia Lehman, DO in OV> ? 05/10/24 1627 ? DD/ 1510 ? TD/TT: 05/10/24 1525 ? Marble Mason: ? Procedure Note Donotuseinterpreter, Image - 05/10/2024 [facility] [address] [place] [address] Mammography Report Signed Patient: Aspen JoaquinR#: [id number] : 1965Acct:[id number] Age/Sex: 58 / FADM Date: 05/10/24 Loc: HO.MAMMO Attending Dr: London Clark MD Ordering Physician: Name,London MAYAesults: 1Negative Date of Service: 05/10/24Follow Up: 1 Year From Orig inal Mammogram Procedure(s): MM tomosynthesis screening RT Accession Number(s): [id number] cc: Nova Olson MD; Name,London FREED EXAMINATION: MM SCREENING DIGITAL BREAST TOMOSYNTHESIS, RIGHT CLINICAL INFORMATION: Screening. Asymptomatic. Left mastectomy. COMPARISON: Mammography: This study is compared with prior exams dating back to TECHNIQUE: Digital breast tomosynthesis is performed in both the craniocaudal and mediolateral oblique views along with computer-aided detection (CAD). Synthesized 2D images are generated from the tomosynthesis. FINDINGS: The breasts are heterogeneously dense, which may obscure small masses (ACR BI-RADS breast composition Category c). There are no significant masses, abnormal calcifications, or other abnormalities. MM/MM tomosynthesis screening RT IMPRESSION: No mammographic evidence of malignancy. ASSESSMENT: BI-RADS BI-RADS 1 - Negative RECOMMENDATION: Routine annual mammography screening. 1 year F/U This examination should not preclude the clinical evaluation of a suspicious palpable abnormality. This patient's information was entered into a reminder system with a target due date for their next mammogram. Electronically signed by: Afia Lehman DO 05/10/2024 04:27 PM EST Dictated By: Afia Lehman DO Signed By: <Electronically signed by Afia Lehman DO in OV> 05/10/24 1627 DD/ 1510 TD/TT: 05/10/24 1525 Marble Mason: us London Clark MD IMG BI PROCEDURES Final Result * HPV mRNA E6/E7 w/Reflex to HPV Genotypes 16, 18/45 (11/09/2023 1:08 PM EDT) HPV nRNA E6/E7 Not Detected Not Detected [facility] Comment:Methodology: Transcr iption-Mediated AmplificationThis assay detects E6/E7 viral messenger RNA (mRNA) from 14high-risk HPV types (16,18,31,33,35,39,45,51,52,56,58,59,66,68).Cervical sources are required for HPV testing.If a vaginal source from a patient who has had atotal hysterectomy with removal of cervix wassubmitted, please contact the testing laboratoryfor alternative testing options.For additional information, please refer [email or web address]/faq/[email or web address](This link if provided for information/educational purposes only.)THIS TEST WAS PERFORMED AT:[employer] [place] [phone] BAIRD MD HPV mRNA E6/E7 [facility] HPV 16 RNA [facility] HPV 18/45 RNA [facility] 11/09/2023 1:08 PM EDT 11/10/2023 7:00 AM EDT us Zelalem GRIMALDO LAB CYTOLOGY ORDERABLES F inal Result [facility] [address] [place] [address] [phone] * Pap Smear (11/09/2023 1:08 PM EDT) Swab Cervix uteri structure / Unknown 11/09/2023 1:08 PM EDT 11/10/2023 7:00 AM EDT Narrative [facility] - 11/25/2023 5:47 PM EDT ----- ------- Name: Keesha Joaquin ? Age/Sex: 58/F ? : 1965 Unit#: [id number] ?? Attend Dr: London Clark MD ?Re11/06/23 ?Status: DEP REF ? [facility] ? Disch: ? ----- ------- SPEC : [id number] ? RECD: 11/10/23 ? STATUS: ??SOUT ? REQ NUM: [id number] ? ALEKS: 11/09/23 ? SUBM DR: ZELALEM MENG CNM ? ENTERED: ??11/10/23 ?SP TYPE: Pap Smr ?OTHR : ? ORDERED: ??Pap Smear ? Interpretation ?? Satisfactory for evaluation. ?? No endocervical cells seen. ?? Negative for intraepithelial lesion or malignancy. ? HPV mRNA E6/E7: ?NOT DETECTED ? This assay detects E6/E7 viral messenger RNA (mRNA) from 14 high-risk HPV types (16, 18, ?? 31, 33, 35, 39, 45, 51, 52, 56, 58, 59, 66, 68) ? HPV testing performed by [facility], [place], [place]. ??See reference laboratory ?? portion of the EMR for entire report. ?Clinical Information LMP: Postmenopausal Previous PAP test: 2016, WNL ? Material Received ?? ThinPrep-Cervical ----- ------- Signed (signature on file) Kate Carlin Fito 11/25/231746 ? ----- ------- ? END OF REPORT ? Zelalem Pato GRIMALDO LAB CYTOLOGY ORDERABLES F inal Result Performing Organization Address [facility] de Phone Number [facility] [address] [place] [phone] * Hepatitis C Ab (11/06/2023 3:21 PM EDT) Hepatitis C Antibody Nonreactive Nonreactive [facility] Comment:Antibodies to HCV no t detected; does not exclude early acuteHCV infection. Blood Venous blood specimen / Unknown 11/06/2023 3:21 PM EDT 11/06/2023 4:14 PM EDT London Clark MD LAB BLOOD ORDERABLES Final Resul t Performing Organization Address [facility] de Phone Number [facility] [address] [place] [address] [phone] * HIV-1/2 Antigen and Antibodies, Fourth Generation, with Reflexes (11/06/2023 3:21 PM EDT) HIV AB/AG Nonreactive Nonreactive [facility] Comment:HIV-1 p24 Ag and/or HIV-1/HIV-2 Ab not detected.A test result that is nonreactive does not exclude thepossibility of exposure to or infection with HIV-1 and/orHIV-2. Nonreactive results in this assay for individualswith prior exposure to HIV-1 and/or HIV-2 may be due toantigen and antibody levels that are below the limit ofdetection of this assay.The [employer] HIV Ag/Ab Combo assay result andsupplemental assay results should be interpreted inconjunction with the patient's clinical presentation,history and other laboratory results. If the results areinconsistent with clinical evidence, additional testing issuggested to confirm the result. Blood Venous blood specimen / Unknown 11/06/2023 3:21 PM EDT 11/06/2023 4:14 PM EDT us London Clark MD LAB BLOOD ORDERABLES Final Resul t [facility] [address] [place] [address] [phone] * Hm Colonoscopy (06/22/2015 11:12 AM EST) Colonoscopy Normal Normal Narrative Alexandra Kauffman - 06/22/2015 11:12 AM EST Recommended 10 year follow up us Historical Provider HEALTH MAINTENANCE Edited Result - Final from Last 3 Months or Most Recently Relevant to Health Maintenance Insurance [facility] AD[facility] Care Teams Distributor Publications Relationship Specialty Start Date End Date Name, MD [place] [address] [place] [address] PCP - General Internal Medicine 06/20/22
--- OUTSIDE RECORDS SUMMARY | 2024-10-14 18:01 | XMS_ITS | Encounter Summary ---
Author Organization [employer] [facility] Address [address] [place] [address] [address]t [place] [address] Care Team Providers Care Purchasing Director Name Role Phone Name, London FREED Primary Care Provider [phone] Encounter Details Date Type Department Care Team (Late st Contact Info) Description 12/13/2022 Abstract [facility] MEDICINE [address] [place], [place] [phone] Name, MD London [address] [place] [address] [phone] Social History Tobacco Use Types Packs/Day Years Used Date Smoking Tobacco: Every Day Cigarettes Smokeless Tobacco: Never PHQ-2 Answer Date Recorded Patient Health Questionnaire-2 Score 0 07/15/2022 Depression Answer Date Recorded Patient Health Questionnaire-2 Score 0 07/15/2022 Comments Unknown Sex and Gender Information Value Date Recorded Sex Assigned at Female 05/02/2022 10:16 AM EDT Legal Sex Female 10:16 AM EDT Gender Identity Female 05/02/2022 10:16 AM EDT Sexual Orientation Lesbian or [place]issom 05/02/2022 10 :16 AM EDT documented as of this encounter Plan of Treatment Upcoming Encounters Date Type Department Care Team (Late st Contact Info) Description 10/17/2024 3:30 PM EDT Clinical Support [facility] [address] [place], [place] [phone] 03/27/2025 3:00 PM EDT Office Visit [facility] [address] [place], [place] [phone] DaviSailaja pemberton, OD [address] [place], [place] [phone] documented as of this encounter Procedures Procedure Name Priority Date/Time Associated Diagnosis Comments COLONOSCOPY Routine 06/22/2015 11:12 AM EST documented in this encounter Results * Colonoscopy (06/22/2015 11:12 AM EST) Colonoscopy Normal Normal Narrative Alexandra Kauffman - 06/22/2015 11:12 AM EST Recommended 10 year follow up Historical Provider [facility] MAINTENANCE Edited Result - Final documented in this encounter Visit Diagnoses Not on filedocumented in this encounter Care Teams Purchasing Director Relationship Specialty Start Date End Date Name, MD London [address] [place] [id number] PCP - General Internal Medicine 06/20/22 documented as of this encounter
--- OUTSIDE RECORDS SUMMARY | 2024-10-14 18:01 | XMS_ITS | Encounter Summary ---
Author Organization [employer] Address [address] [place] [address] 7t [place] [address] Care Team Providers Care Livestock Brands Inspector Name Role Phone Name, London FREED Primary Care Provider [phone] Encounter Details Date Type Department Care Team (Late st Contact Info) Description 11/23/2022 Orders Only [facility] [address] [place], [place] [phone] Name, MD London [address] [place] [address] Social History Tobacco Use Types Packs/Day Years [...] Description 10/17/2024 3:30 PM EDT Clinical Support [facility]ICINE [address] [place], [place] [phone] 03/27/2025 3:00 PM EDT Office Visit [facility] OPTOMETRY [address] [place], [place] [phone] Davi, Sailaja, OD [address] [place] [address] documented as of this encounter Visit Diagnoses Not on filedocumented in this encounter Care Teams Livestock Brands Inspector Relationship Specialty Start Date End Date Name, MD [place] [address] [place] [address] PCP - General Internal Medicine 06/20/22 documented as of this encounter
--- OUTSIDE RECORDS SUMMARY | 2024-10-14 18:01 | XMS_ITS | Encounter Summary ---
Author Organization [employer] [facility] Address [address] [facility] 7t [place] [address] Care Team Providers Care Coal Deliverer Name Role Phone Name, London FREED Primary Care Provider [phone] Encounter Details Date Type Department Care Team ([facility] Contact Info) Description 01/11/2023 Abstract [facility] MEDICINE [address] [place], [place] [phone] Name, MD London [address] [place], [place] [phone] Social History Tobacco Use Types Packs/Day Years Used Date Smoking Tobacco: Former Cigarettes Smokeless Tobacco: Never Alcohol Use Standard Drinks/Week Comments Never 0 (1 standard drink = 0.6 oz pur e alcohol) PHQ-2 Answer Date Recorded Patient Health Questionnaire-2 Score 0 07/15/2022 Depression Answer Date Recorded Patient Health Questionnaire-2 Score 0 07/15/2022 Comments Unknown Sex and Gender Information Value Date Recorded Sex Assigned at Female 05/02/2022 10:16 AM EDT Legal Sex Female 10:16 AM EDT Gender Identity Female 05/02/2022 10:16 AM EDT Sexual Orientation Lesbian or [place] 05/02/2022 10 :16 AM EDT COVID-19 Exposure Response Date Recorded In the last 10 days, have yo u been in contact with someone who was confirmed or suspected to have Coronavirus/COVID-19? No / Unsure 12/26/2022 3:11 PM EDT documented as of this encounter Plan of Treatment Upcoming Encounters Date Type Department Care Team (Late Contact Info) Description 10/17/2024 3:30 PM EDT Clinical Support [facility] MEDICINE [address] [place] [address] 03/27/2025 3:00 PM EDT Office Visit [facility] OPTOMETRY [address] [place], [place] [phone] Sailaja Tomlinson, KYLER [address] [place] [address] documented as of this encounter Visit Diagnoses Not on filedocumented in this encounter Care Teams Coal Deliverer Relationship Specialty Start Date End Date Name, MD London [address] [place] [address] PCP - General Internal Medicine 06/20/22 documented as of this encounter
--- OUTSIDE RECORDS SUMMARY | 2024-10-14 18:01 | XMS_ITS | Encounter Summary ---
Author Organization [employer] Address [address] [place] [address] [address] [place] [address] Care Team Providers Care Case Assembler Name Role Phone Name, London FREED Primary Care Provider Reason for Visit * Reason Onset Date Comments Appointment Request 03/16/2023 Encounter Details Date Type Department Care Team ([facility] st Contact Info) Description 03/16/2023 Telephone [facility] MEDICINE [address] [place], [place] [phone] Name, MD London [address] [place] [address] Appointment Request Social History Tobacco Use Types Packs/Day Years [...] AM EDT documented as of this encounter Miscellaneous Notes * Telephone Encounter - Tricia Barnes - 03/16/2023 3:00 PM EDT Tc from pt requesting to r/s appt with provider on 04/12/2023 @ 10:45 am . Pt states that when called upon she agreed to 3:45 pm not 10:45 am and cannot make it due to work Please contact to at [phone] documented in this encounter Plan of Treatment Upcoming Encounters Date Type Department Care Team ([facility] st Contact Info) Description 10/17/2024 3:30 PM EDT Clinical Support [facility] MEDICINE [address] [place] [address] 03/27/2025 3:00 PM EDT Office Visit [facility] OPTOMETRY [address] [place] [address] Davi, Sailaja, OD [address] [place] [address] documented as of this encounter Visit Diagnoses Not on filedocumented in this encounter Care Teams Case Assembler Relationship Specialty Start Date End Date Name, MD London [address] [place] [address] PCP - General Internal Medicine 06/20/22 documented as of this encounter
== END 2024-10-14 15:35 | disposition home or self-care (01) ==
LOC: HO.HHCL 15:34
PROVIDERS: Visit Provider Internal Medicine Geriatric Medicine
DX: E11.65 Type 2 diabetes mellitus with hyperglycemia (principal)
CPT/HCPCS: 36415; 80053; 80061; 82043; 82570

== ENCOUNTER → 2025-06-18 15:00 | Outpatient (BNV) | payer MEDICAID, SELFPAY | PROVIDERS: Absent Provider Internal Medicine; PCP Internal Medicine Geriatric Medicine; Referring Provider Surgery; Visit Provider Radiology Body Imaging | DX: Z12.31 Encounter for screening mammogram for malignant neoplasm of breast (principal) | CPT/HCPCS: 77063; 77067 ==

== ENCOUNTER 2025-06-18 15:06 | Outpatient (REF) | payer MEDICAID, SELFPAY ==
--- OUTSIDE RECORDS SUMMARY | 2025-06-18 20:03 | XMS_ITS | Encounter Summary ---
Author Organization [employer] Address [address] [facility] 7t [place] [address] Care Team Providers Care Ell Teacher Name Role Phone Name, London FREED Primary Care Provider [phone] Encounter Details Date Type Department Care Team ([facility] Contact Info) Description 01/11/2023 Abstract [facility] MEDICINE [address] [place] [address] [phone] Name, MD London [address] [place] [address] [phone] Social History Tobacco Use Types Packs/Day Years [...] Upcoming Encounters Date Type Department Care Team ([facility] Contact Info) Description 06/30/2025 3:45 PM EST Office Visit [facility] MEDICINE [address] [place] [address] [phone] Name, MD London [address] [place] [address] documented as of this encounter Visit Diagnoses Not on filedocumented in this encounter Care Teams Ell Teacher Relationship Specialty Start Date End Date Name, MD London [address] [place] [address] PCP - General Internal Medicine 06/20/22 documented as of this encounter
--- OUTSIDE RECORDS SUMMARY | 2025-06-18 20:03 | XMS_ITS | Encounter Summary ---
Author Organization [employer] Address [address] [facility] [address] [place] [address] Care Team Providers Care Supervisor Plastic Sheets Name Role Phone Name, London FREED Primary Care Provider [phone] Reason for Visit * Reason Comments Med Refill Encounter Details Date Type Department Care Team ([facility] st Contact Info) Description 06/15/2025 Refill [facility] MEDICINE [address] [place], [place] [phone] Name, MD London [address] [place] [address] Social History Tobacco Use Types Packs/Day Years Used Date Smoking Tobacco: Former Smokeless Tobacco: Never Alcohol Use Standard Drinks/Week Comments Never 0 (1 standard drink = 0.6 oz pur e alcohol) Alcohol Answer Date Recorded Frequency of Alcohol Consumption Not on file 01/02/2024 Average Number of Drinks Not on file Frequency of Binge Drinking Not on file [...] Care Team (Late st Contact Info) Description 06/30/2025 3:45 PM EST Office Visit [facility] MEDICINE [address] [place] [address] Name, MD London [address] [place] [address] documented as of this encounter Visit Diagnoses Not on filedocumented in this encounter Additional Health Concerns Assessment Noted Time PHQ-9 Depression Total Score: 0 09/26/19 24 3:35 PM EDT documented as of this encounter Care Teams Supervisor Plastic Sheets Relationship Specialty Start Date End Date Name, MD London [address] [place] [address] PCP - General Internal Medicine 06/20/22 documented as of this encounter
--- OUTSIDE RECORDS SUMMARY | 2025-06-18 20:03 | XMS_ITS | Encounter Summary ---
Author Organization [employer] Address [address] [facility] [address] [place] [address] Care Team Providers Care Account Technician Name Role Phone Name, London FREED Primary Care Provider [phone] Reason for Visit * Reason Comments Med Refill Encounter Details Date Type Department Care Team ([facility] st Contact Info) Description 03/24/2025 Refill [facility] [address] [place], [place] [phone] Name, MD London [address] [place] [address] Social History Tobacco Use Types Packs/Day Years [...] Description 06/30/2025 3:45 PM EST Office Visit [facility] MEDICINE [address] [place] [address] Name, MD London [address] [place] [address] documented as of this encounter Visit Diagnoses Not on filedocumented in this encounter Additional Health Concerns Assessment Noted Time PHQ-9 Depression Total Score: 0 09/26/19 24 3:35 PM EDT documented as of this encounter Care Teams Account Technician Relationship Specialty Start Date End Date NameLondon MD [address] [place] [address] PCP - General Internal Medicine 06/20/22 documented as of this encounter
--- OUTSIDE RECORDS SUMMARY | 2025-06-18 20:03 | XMS_ITS | Clinical Summary ---
Author Organization [employer] Address [address] [place] [address] Care Team Providers Care Audit Tech Name Role Phone Name, London FREED Primary Care Provider [phone] Allergies Active Allergy Reactions Criticality Noted Date Comments Acetaminophen Unknown 06/04/2013 Lisinopril Cough 07/30/2010 Oxycodone Unknown 06/04/2013 Medications Blood Pressure Monitoring (Omron 3 Series BP Monitor) device USE TO CHECK BLOOD PRESSURE EVERY DAY 10/28/19 22 Active Diclofenac Sodium 1 % cream Apply once a day to the affected knee 100 g 2 05/29/20 23 Active empagliflozin- metFORMIN (Synjardy) 5-500 MGIndications: Type 2 diabetes mellitus with hyperglycemia, without long-term current use of insulin (HCC) Take 1 tablet by mouth with breakfast and with evening meal. 60 tablet 11 05/16/2025 3:44 PM EST 10/08/19 25 026 Active losartan (Cozaar) 100 MG tabletIndicati ons:Type 2 diabetes mellitus with hyperglycemia, without long-term current use of insulin (HCC) Take 1 tablet (100 mg) by mouth [...] 25 Active Blood Glucose Monitoring Suppl (FreeStyle Gerald Lite) w/Device kit Use to test blood sugar one times daily 1 kit 10/08/19 25 Active atorvastatin (Lipitor) 40 MG tablet Take 1 tablet (40 mg) by mouth Once per day. 30 tablet 11 10/19/19 25 026 Active Multiple Vitamins-Yalobusha als (CertaVite/Ant ioxidants) tablet TAKE 1 TABLET BY MOUTH EVERY DAY IN THE MORNING WITH BREAKFAST 90 tablet 1 11/01/19 25 Active cholecalcifero l VITAMIN D (Vitamin D-3) 50 MCG (2000 UT) tablet TAKE 1 TABLET BY MOUTH EVERY MORNING 90 tablet 1 06/16/20 25 Active cholecalcifero l VITAMIN D (Vitamin D-3) 50 MCG (2000 UT) tablet TAKE 1 TABLET BY MOUTH EVERY DAY IN THE MORNING 90 tablet 1 11/01/19 25 025 Discontinued Active Problems Problem Noted Date Diagnosed Date Stage 3a chronic kidney disease (CMS/HCC) 2024 H/O left mastectomy 07/15/2022 Overview (07/15/2022): 07/08/2022 Dr Maurer Infiltrating ductal carcinom a of left female breast (CMS/HCC) 12/24/2021 Overview (09/15/2022): She has invasive ductal carcinoma of the left breast, Dx 10/2021, ER/NV negative, HER 2 positive. She did neoadjuvant chemotherapy and had left mastectomy with sentinel node biopsy 07/08/2022. On Herceptin/Pertuzumab as of 08/2022 Type 2 diabetes mellitus wit h kidney complication, with long-term current use of insulin 12/24/2021 Tinea pedis 10/27/2021 Hyperlipidemia 10/27/2021 Essential hypertension 10/27/2021 Knee pain, bilateral 10/27/2021 Persistent microalbuminuria due to type 2 diabet es mellitus 10/27/2021 Encounters Date Type Department Care Team Description 06/15/2025 Refill [facility] [address] [place] [address] Name, MD London 04/01/2025 3:30 PM EDT Clinical Support [facility] [address] [place] [address] Marita Healy, MARINO Encounter for immunization 04/01/2025 Travel 03/24/2025 Refill [facility] [address] [place] [address] Name, MD London from Last 3 Months Immunizations Immunization Administration Dates Next Due Influenza injectable quadriv alent IIV4 with preservative 03/21/2023,03/23/2016 Influenza injectable quadriv alent preservative free 06/18/2021,05/04/2017 Influenza, IIV3, injectable 05/06/2014, 1,04/30/2010 Influenza, Split (incl. ranjit fied surface antigen) 03/28/2013,05/01/2012 Influenza, seasonal, injecta ble, preservative free 04/01/2025,04/16/2024 Pfizer Covid-19 Vaccine 12+ 04/16/2024 Pneumococcal Conjugate [...] Sign Reading Time Taken Comments Blood Pressure 120/78 02/04/2025 4:06 PM EDT Pulse 75 02/04/2025 4:06 PM EDT Temperature 37 C (98.6 F) 02/04/2025 4:06 PM EDT Respiratory Rate 16 02/04/2025 4:06 PM EDT Oxygen Saturation 99% 02/04/2025 4:06 PM EDT Inhaled Oxygen Concentration - - Weight 73.2 kg (161 lb 6.4 oz) 02/04/2025 4:06 P M EDT Height 160 cm (5' 3 ) 02/04/2025 4:06 PM EDT Body Mass Index 28.59 02/04/2025 4:06 PM EDT Plan of Treatment Upcoming Encounters Date Type Department Care Team (Late st Contact Info) Description 06/30/2025 3:45 PM EST Office Visit [facility] [address] [place] [address] Name, MD London [address] [place] [address] Health Maintenance Due Date Last Done Comments CT Colonography 1965 FIT DNA/Cologuard 1965 FIT 1965 FOBT 1965 Sigmoidoscopy 1965 Disability Screening 1965 Alcohol/Substance Use Screening 1976 RSV Patients and Patients Aged 60 years or older (1 - Risk 50-74 years 1-dose series) 2014 Zoster Vaccines (1 of 2) 2014 Dental Prophylaxis 01/27/2016 07/28/2015, 0 07/16/2010, 10/08/2009, Additional history exists Dental X-Ray: Bitewings 07/29/2016 07/28/2015, 06/04 Dental Oral Exam 08/22/2016 02/19/2016, , 06/04/2013 Diabetes: Foot Exam 04/12/2024 04/12/2023, 04/12/2023, 04/12/2023 Depression Screening 09/25/2024 09/26/2023, 09/26/19 24 SDOH Screening 09/25/2024 09/26/2023 COVID-19 Vaccine ( season) 2025 04/16/2024, 06/18/2021, 10/12/2020 Mammogram 05/10/2025 05/10/2024, 08/2022, 05/04/2023, Additional history exists Colonoscopy 06/22/2025 06/22/2015 Colorectal Cancer Screening 06/22/2025 Diabetes: Hemoglobin A1C 08/07/2025 025, 10/07/2024, 09/26/2023, Additional history exists Lipid Panel 10/14/2025 10/14/2024, 12/2023, 07/15/2022 Tobacco Screening 02/04/2026 02/04/2025 Eye Exam 03/26/2026 03/26/2024, 03/04, 03/26/2024, Additional history exists Dental X-Ray: Full Mouth 07/26/2026 07/25/2023, 08/2012 Cervical Cancer Screening 11/08/2028 HPV/Cotest 11/08/2028 11/09/2023 Pap Smear 11/08/2028 11/09/2023, 07/06/2015 DTaP/Tdap/Td Vaccines (3 - Td or Tdap) 12/27/2032 12/27/2022, 03/11/2011 Pneumococcal Vaccine: 50+ Years Completed 05/29/2023, 05/01/2012 HIV Screening Completed 11/06/2023 Hepatitis C Screening Completed 11/06/2023 Influenza Vaccine Completed 04/01/2025, , 03/21/2023, Additional history exists HIB Vaccines Aged Out [...] patient's age to complete this topic Meningococcal B Vaccine Aged Out No l onger eligible based on patient's age to complete [...] Procedure Name Priority Date/Time Associated Diagnosis Comments POCT GLYCATED HEMOGLOBIN, TOTAL Routine 02/04/2025 4:21 PM EDT Type II or unspecified type diabetes mellitus with renal manifestations, not stated as uncontrolled(250.40) (CMS/HCC) LIPID PANEL, STANDARD Routine 10/14/2024 3:36 PM EDT Type 2 diabetes mellitus with hyperglycemia, without long-term current use of insulin ([facility]) BI MAMMOGRAM SCREENING TOMOSYNTHESIS RIGHT Routine 05/10/2024 [...] Recently Relevant to Health Maintenance Results * (ABNORMAL) POCT HGB A1C (02/04/2025 4:21 PM EDT) Hemoglobin A1C 6.2(A) 4.0 - 5.7 % QC Media Lot # [id number] Lot# Expiration Date Blood 02/04/2025 4:21 PM EDT us London Name POINT OF CARE TEST ENTER/EDIT OR DERABLES Final Result * (ABNORMAL) Lipid Panel, Standard (10/14/2024 3:36 PM EDT) Triglycerides 322(H) <150 mg/dL [facility] Comment:Desirable Triglyceri de: less than 150 mg/dLBorderline High Triglyceride 150-199 mg/dLHigh Triglyceride: 200-499 mg/dLVery High Triglyceride: greater than or equal to 5OO mg/dL Cholesterol 228(H) <200 mg/dL [facility] Comment:Desirable Cholestero l: less than 200 mg/dLBorderline High Cholesterol: 200-239 mg/dLHigh Cholesterol: greater than 239 mg/dL LDL Cholesterol Calculated 120(H) <100 mg/dL [facility] Comment:Desirable LDL: less than 100 mg/dLNear Optimal/Above Optimal LDL: 110- 129 mg/dLBorderline High LDL: 130-159 mg/dLHigh LDL: 160-189 mg/dLVery High LDL: greater than or equal to 190 mg/dL HDL Cholesterol 44 >40 mg/dL [facility] Comment:Desirable HDL: great er than 40 mg/dL Note: This HDL assay may give artificially low results in patients with liver disease. Blood Venous blood specimen / Unknown 10/14/2024 3:36 PM EDT 10/14/2024 4:02 PM EDT us London Clark MD LAB BLOOD ORDERABLES Final Resul t [facility] [address] [place] [address] [phone] * BI Mammogram Screening Tomosynthesis Right (05/10/2024 3:10 PM EST) Anatomical Region Laterality Modality Breast Right Mammography 05/10/2024 3:10 PM EST Narrative 05/10/2024 4:30 PM EST [facility] [address] [place] [address] Mammography Report Signed Patient: Keesha Joaquin MR#: [id number] : 1965 Acct:[id number] Age/Sex: 58 / F ADM Date: 05/10/24 Loc: HO.MAMMO Attending Dr: London Clark MD Ordering Physician: NameLondon MD Results: 1Negative Date of Service: 05/10/24 Follow Up: 1 Year From Orig inal Mammogram Procedure(s): MM tomosynthesis screening RT Accession Number(s): [id number] cc: Nova Olson MD; Name,London FREED EXAMINATION: [...] 05/10/24 1627 DD/ 1510 TD/TT: 05/10/24 1525 Tin Whiz Machine Operator: Procedure Note Donotuseinterpreter, Image - 05/10/2024 [facility] [address] [place] [address] Mammography Report Signed Patient: Aspen JoaquinR#: [id number] : 1965Acct:[id number] Age/Sex: 58 / FADM Date: 05/10/24 Loc: HO.MAMMO Attending Dr: London Clark MD Ordering Physician: London Clark MDResults: 1Negative Date of Service: 05/10/24Follow Up: 1 Year From Orig inal Mammogram Procedure(s): MM tomosynthesis screening RT Accession Number(s): [id number] cc: Nova Olson MD; Name,London FREED EXAMINATION: [...] 05/10/24 1627 DD/ 1510 TD/TT: 05/10/24 1525 Tin Whiz Machine Operator: London Clark MD IMShoshana BI PROCEDURES Final Result * HPV mRNA E6/E7 w/Reflex to HPV Genotypes 16, 18/45 (11/09/2023 1:08 PM EDT) HPV nRNA E6/E7 Not Detected Not Detected [facility] Comment:Methodology: Transcr iption-Mediated AmplificationThis assay detects E6/E7 viral messenger RNA (mRNA) from 14high-risk HPV types (16,18,31,33,35,39,45,51,52,56,58,59,66,68).Cervical sources are required for HPV testing.If a vaginal source from a patient who has had atotal hysterectomy with removal of cervix wassubmitted, please contact the testing laboratoryfor alternative testing options.For additional information, please refer [email or web address].Gera-IT/faq/[email or web address](This link if provided for information/educational purposes only.)THIS TEST WAS PERFORMED AT:[facility] [place] [phone] BAIRD MD HPV mRNA E6/E7 [facility] HPV 16 RNA [facility] HPV 18/45 RNA [facility] 11/09/2023 1:08 PM EDT 11/10/2023 7:00 AM EDT Zelalem GRIMAL[facility] LAB CYTOLOGY ORDERABLES F inal Result [facility] [address] [place] [address] [phone] * Pap Smear (11/09/2023 1:08 PM EDT) Swab Cervix uteri structure / Unknown 11/09/2023 1:08 PM EDT 11/10/2023 7:00 AM EDT Za [facility] - 11/25/2023 5:47 PM EDT ----- ------- Name: Keesha Joaquin Age/Sex: 58/F : 1965 Unit#: [id number] Attend Dr: London Clark MD Re11/06/23 Status: [facility] REF Location: [facility] Disch: ----- ------- SPEC : [id number] RECD: 11/10/23 STATUS: KARLO CURTIS NUM: [id number] ALEKS: 11/09/23-[address] [facility] [address]: ZELALEM MENG [facility] ENTERED: 11/10/23 SP TYPE: Pap Smr [facility] DR: ORDERED: Pap Smear Interpretation Satisfactory for evaluation. No endocervical cells seen. Negative for intraepithelial lesion or malignancy. HPV mRNA E6/E7: NOT DETECTED This assay detects E6/E7 viral messenger RNA (mRNA) from 14 high-risk HPV types (16, 18, 31, 33, 35, 39, 45, 51, 52, 56, 58, 59, 66, 68) HPV testing performed by [facility], [place], [place]. See reference laboratory portion of the EMR for entire report. Clinical Information LMP: Postmenopausal Previous PAP test: 2016, WNL Material Received ThinPrep-Cervical ----- ------- Signed (signature on file) Kate Payton 11/25/23 1747 ----- ------- END OF REPORT Zelalem [facility] LAB CYTOLOGY ORDERABLES F inal Result Performing Organization Address [facility]/ZIP Co de Phone Number [facility] [address] [place] [address] [phone] * Hepatitis C Ab (11/06/2023 3:21 PM EDT) Hepatitis C Antibody Nonreactive Nonreactive [facility] Comment:Antibodies to HCV no t detected; does not exclude early acuteHCV infection. Blood Venous blood specimen / Unknown 11/06/2023 3:21 PM EDT 11/06/2023 4:14 PM EDT London Clark MD LAB BLOOD ORDERABLES Final Resul t Performing Organization Address [facility]/ZIP Co de Phone Number [facility] [address], [place] [phone] * HIV-1/2 Antigen and Antibodies, Fourth Generation, with Reflexes (11/06/2023 3:21 PM EDT) HIV AB/AG Nonreactive Nonreactive [facility] Comment:HIV-1 p24 Ag and/or HIV-1/HIV-2 Ab not detected.A test result that is nonreactive does not exclude thepossibility of exposure to or infection with HIV-1 and/orHIV-2. Nonreactive results in this assay for individualswith prior exposure to HIV-1 and/or HIV-2 may be due toantigen and antibody levels that are below the limit ofdetection of this assay.The Graphicly HIV Ag/Ab Combo assay result andsupplemental assay results should be interpreted inconjunction with the patient's clinical presentation,history and other laboratory results. If the results areinconsistent with clinical evidence, additional testing issuggested to confirm the result. Blood Venous blood specimen / Unknown 11/06/2023 3:21 PM EDT 11/06/2023 4:14 PM EDT London Clark MD LAB BLOOD ORDERABLES Final Resul t [facility] [address] [place] [phone] * Hm Colonoscopy (06/22/2015 11:12 AM EST) Colonoscopy Normal Normal Narrative Daly, Alexandra - 06/22/2015 11:12 AM EST Recommended 10 year follow up Historical Provider HEALTH MAINTENANCE Edited Result - Final from Last 3 Months or Most Recently Relevant to Health Maintenance Insurance [facility] MEDICAID STAND ADULT HSN FULL Care Teams Audit Tech Relationship Specialty Start Date End Date Name, MD London [address] [place] [address] PCP - General Internal Medicine 06/20/22
--- OUTSIDE RECORDS SUMMARY | 2025-06-18 20:03 | XMS_ITS | Encounter Summary ---
Author Organization [employer] Address [address] [place] [address] [address] [place] [address] Care Team Providers Care Biomass Boiler Operator Name Role Phone NameLondon MD Primary Care Provider [phone] Encounter Details Date Type Department [facility] Description 11/23/2022 [facility] Health Information Management [address] [place] [address] [phone] London Clark MD [address] [place] [address] [phone] Social History Tobacco Use Types Packs/Day Years [...] Upcoming Encounters Date Type Department Care Team [facility] Contact [facility] Description 06/30/2025 3:45 PM EST Office Visit [facility] [address] [place] [address] [phone] London Clark MD [address] [place] [address] [phone] documented as of this encounter Visit Diagnoses Not on filedocumented in this encounter Care Teams Biomass Boiler Operator Relationship Specialty Start Date End Date London Clark MD [address] [place] [address] PCP - General Internal Medicine 06/20/22 documented as of this encounter
--- OUTSIDE RECORDS SUMMARY | 2025-06-18 20:03 | XMS_ITS | Encounter Summary ---
Author Organization [employer] Address [address] [place] [address] [address] [place] [address] Care Team Providers Care Mill Roll Operator Name Role Phone NameLondon MD Primary Care Provider [phone] Encounter Details Date Type Department Care Team ([facility] Contact Info) Description 12/13/2022 Abstract [facility] [address] [place] [address] [phone] London Clark MD [address] [place] [address] [phone] Social History Tobacco Use Types Packs/Day Years [...] Upcoming Encounters Date Type Department Care Team ([facility] Contact Info) Description 06/30/2025 3:45 PM EST Office Visit [facility] [address] [place] [address] [phone] London Clark MD [address] [place] [address] [phone] documented as of this encounter Procedures Procedure Name Priority Date/Time Associated Diagnosis Comments HM COLONOSCOPY Routine 06/22/2015 11:12 AM EST documented in this encounter Results * Hm Colonoscopy (06/22/2015 11:12 AM EST) Colonoscopy Normal Normal Narrative Alexandra Kauffman - 06/22/2015 11:12 AM EST Recommended 10 year follow up us Historical Provider [facility] MAINTENANCE Edited Result - Final documented in this encounter Visit Diagnoses Not on filedocumented in this encounter Care Teams Mill Roll Operator Relationship Specialty Start Date End Date Name, MD London [address] [place] [phone] PCP - General Internal Medicine 06/20/22 documented as of this encounter
--- OUTSIDE RECORDS SUMMARY | 2025-06-18 20:03 | XMS_ITS | Encounter Summary ---
Author Organization [employer] Address [address] [facility] [address] [place] [address] Care Team Providers Care Site Physician Name Role Phone Name, London FREED Primary Care Provider Reason for Visit * Reason Onset Date Comments Appointment Request 03/16/2023 Encounter Details Date Type Department Care Team ([facility] st Contact Info) Description 03/16/2023 Telephone [facility] [address] [place] [address] [phone] Name, MD London [address] [place] [address] Appointment Request Social History Tobacco Use Types [...] due to work Please contact to at [phone] documented in this encounter Plan of Treatment Upcoming Encounters Date Type Department Care Team (Late st Contact Info) Description 06/30/2025 3:45 PM EST Office Visit [facility] [address] [place] [phone] Name, MD London [address] [place] [phone] documented as of this encounter Visit Diagnoses Not on filedocumented in this encounter Care Teams Site Physician Relationship Specialty Start Date End Date Name, MD London [address] [place] [phone] PCP - General Internal Medicine 06/20/22 documented as of this encounter
== END 2025-06-18 15:07 | disposition home or self-care (01) ==
LOC: HO.MAMMO 15:06
PROVIDERS: Absent Provider Internal Medicine; PCP Internal Medicine Geriatric Medicine; Referring Provider Surgery; Visit Provider Internal Medicine Geriatric Medicine
DX: Z12.31 Encounter for screening mammogram for malignant neoplasm of breast (principal)
CPT/HCPCS: 77063; 77067